=== PATIENT | male | born 1965 | race African-American/Black ===

== ENCOUNTER 2018-06-08 12:51 | Inpatient (IN) | payer OTHER ==
[2018-06-08 13:46] VITALS: BMI 23.8
--- NOTE | 2018-06-08 18:34 | HP ---
"CIWA Score - CIWA Score Nausea/Vomitin-Mild Nausea/No Vomiting Muscle Tremors: 4-Moderate,w/Arms Extend Anxiety: 1-Mildly Anxious Agitation: 1-Slight > Activity Paroxysmal Sweats: 1-Minimal Palms Moist Orientation: 0-Oriented Tacttile Disturbances: 0-None Auditory Disturbances: 0-None Visual Disturbances: 0-None Headache: 2-Mild CIWA-Ar Total Score: 10 Admission ROS BHS - HPI Chief Complaint: Here for alcohol withdrawal and problems. Allergies/Adverse Reactions: Allergies Allergy/AdvReac Type Severity Reaction Status Date / Time acetaminophen [From Tylenol] Allergy Severe Difficulty Verified 06/08/18 14:01 Breathing History of Present Illness: Alcohol use since age 14. THC use since age 9. Nicotine use began at age 14. Denies other substance use. States last drink was yesterday. Has been trying to slow down. Denies hx of seizures or blackouts. Denies DT's. Longest sobriety has been 2 years. States went to meetings during that time. Started back to drinking in 2014. Hx. Depression - on Zoloft; sleep difficulty and has been rx'd in past w/ seroquel Seen @ [facility] on 06/07/18 and was dx'd w/ a (R) Zygoma Fracture and (R ) nasal arch, as well as a (R) Corneal Abrasion. Patient's treatment will be continued in detox. Patient instructed to f/u with an supervisor wet pour upon discharge. Search Terms: Kev Quintero, 1965 Search Date: 06/08/2018 08:44:10 PM The Drug Utilization Report below displays all of the controlled substance prescriptions, if any, that your patient has filled in the last twelve months. The information displayed on this report is compiled from pharmacy submissions to the Department, and accurately reflects the information as submitted by the pharmacies. This report was requested by: Marleny Rahman | Reference #: [id number] Patient Name: Kev Quintero Date: 1965 Address: [address] [address] Sex: Male Rx Written Rx Dispensed Drug Quantity Days Supply Prescriber Name 11/18/2017 11/19/2017 chlordiazepoxide 10 mg capsule 30 10 Seema Quintero Exam Limitations: No Limitations - Ebola screening Have you traveled outside of the country in the last 21 days: No Have you had contact with anyone from an Ebola affected area: No Have you been sick,other than usual withdrawal symptoms: No Do you have a fever: No - Review of Systems Constitutional: Diaphoresis EENT: reports: Tearing ((R) eye), Other ((R) corneal abrasion being rx'd w/ eye drops. (R) nasal fracture. Denies nasal congestion or nose bleeds.) Respiratory: reports: No Symptoms reported Cardiac: reports: No Symptoms Reported GI: reports: Nausea (r/t withdrawal), Indigestion (Hx acid reflux - was taking a 20 mg pill once a day) : reports: No Symptoms Reported Musculoskeletal: reports: Other (Damaged nerves in (R) arm resulting in an inability to lift arm independently. No painful.) Integumentary: reports: No Symptoms Reported Neuro: reports: Headache (Mild), Numbness ((R) hand.), Tremors, Other (Damaged nerves in (R) arm resulting in an inability to lift arm independently.) Endocrine: reports: Excessive Sweating (r/t drinking) Hematology: reports: No Symptoms Reported Psychiatric: reports: Orientated x3, Anxious, Depressed (Denies thoughts of suicide or violent ideation) Patient History - Patient Medical History Hx Anemia: No Hx Asthma: No Hx Chronic Obstructive Pulmonary Disease (COPD): No Hx Cardiac Disorders: No Hx Hypertension: No Hx Hypercholesterolemia: No Hx Seizures: No Hx Diabetes: No Hx Gastrointestinal Disorders: Yes (acid reflux) Hx Genitourinary Disorders: No Hx Sexually Transmitted Disorders: No Hx Renal Disease (ESRD): No Hx Human Immunodeficiency Virus (HIV): No (NEGATIVE ON 09/28/12) Hx Hepatitis C: No Hx Depression: Yes (Denies S/) Hx Suicide Attempt: No Hx Bipolar Disorder: No Hx Schizophrenia: No - Patient Surgical History Past Surgical History: No Hx Neurologic Surgery: No Hx Cataract Extraction: No Hx Cardiac Surgery: No Hx Lung Surgery: No Hx Breast Surgery: No Hx Breast Biopsy: No Hx Abdominal Surgery: No Hx Appendectomy: No Hx Cholecystectomy: No Hx Genitourinary Surgery: No Hx Section: No Hx Orthopedic Surgery: No Anesthesia Reaction: No - PPD History Previous Implant?: Yes Documented Results: Negative w/o proof Implanted On Prior R Admission?: Yes PPD to be Administered?: Yes - Smoking Cessation Smoking history: Current every day smoker Have you smoked in the past 12 months: Yes Aproximately how many cigarettes per day: 4 Hx Chewing Tobacco Use: No Initiated information on smoking cessation: Yes 'Breaking Loose' booklet given: 06/08/18 - Substance & Tx. History Hx Alcohol Use: Yes Hx Substance Use: Yes Substance Use Type: Alcohol, Marijuana Hx Substance Use Treatment: Yes (REHAB, AA) - Substances Abused Alcohol-beer Route: Oral Frequency: Daily Amount used: 2- 24 oz 6 pks. Age of first use: 14 Date of Last Use: 06/07/18 Marijuana Route: Smoking Frequency: Daily Amount used: $5 Age of first use: 9 Date of Last Use: 06/07/18 Admission Physical Exam BHS - Vital Signs Vital Signs: Vital Signs - 24 hr 06/08/18 13:43 Temperature 98.2 F Pulse Rate 62 Respiratory 18 Rate Blood Pressure 125/74 - Physical General Appearance: Yes: Nourished, Appropriately Dressed, Mild Distress, Tremorous, Anxious HEENTM: Yes: EOMI, Hearing grossly Normal, MOON, Other ((R) eye sclera w/ increased erythema. No exudate. Slight swelling (R) cheek w/o tenderness. Tenderness of (L) cheek present upon palpation.) Respiratory: Yes: Chest Non-Tender, Lungs Clear, Normal Breath Sounds, No Respiratory Distress Neck: Yes: No masses,lesions,Nodules, Supple Breast: Yes: Breast Exam Deferred Cardiology: Yes: Regular Rhythm, Regular Rate, S1, S2 Abdominal: Yes: Non Tender, Soft, Increased Bowel Sounds Genitourinary: Yes: Within Normal Limits Back: Yes: Normal Inspection Musculoskeletal: Yes: Gait Steady, Other (Unable to lift (R) arm or bend elbow independently. Able to shrug (R) shoulder. Non-tender when arm flexed or cytology technologist.) Extremities: Yes: Normal Capillary Refill, Non-Tender, Tremors (of hands at rest and increases with extension of arms.) Neurological: Yes: community assistant II-XII NML intact, Fully Oriented, Alert, Normal Mood/ Affect, Other (BHG (L) > (R).) Integumentary: Yes: Normal Color, Dry, Warm Lymphatic: Yes: Within Normal Limits - Diagnostic (1) Alcohol dependence with uncomplicated withdrawal Current Visit: Yes Status: Acute (2) Cannabis dependence, uncomplicated Current Visit: Yes Status: Chronic (3) Fracture of nasal bones, subsequent encounter for fracture with routine healing Current Visit: Yes Status: Acute Qualifiers: Fracture type: closed Qualified Code(s): S02.2XXD - Fracture of nasal bones , subsequent encounter for fracture with routine healing (4) Zygomatic fracture, right side, sequela Current Visit: Yes Status: Acute (5) GERD (gastroesophageal reflux disease) Current Visit: Yes Status: Acute Qualifiers: Esophagitis presence: esophagitis presence not specified Qualified Code(s) : K21.9 - Gastro-esophageal reflux disease without esophagitis Cleared for Admission BHS - Detox or Rehab BHS Level of Care: Medically Supervised Detox Regimen/Protocol: Librium BHS Breath Alcohol Content Breath Alcohol Content: 0 Urine Drug Screen - Results Drug Screen Negative: No Urine Drug Screen Results: THC-Marijuana"
[2018-06-08] MEDS ORDERED: IBUPROFEN 400 MG TABLET (FP) PO PRN (19:17)
[2018-06-08] MEDS ORDERED: LOPERAMIDE HCL 2 MG CAPSULE PO PRN (19:17)
[2018-06-08] MEDS ORDERED: guaiFENesin/D-METHORPHAN HB 10 ML UNIT-DOSE CUPS PO PRN (19:17)
[2018-06-08] MEDS ORDERED: NICOTINE POLACRILEX 2 MG GUM BC PRN (19:17)
[2018-06-08] MEDS ORDERED: chlordiazePOXIDE HCL 25 MG CAPSULE PO PRN (19:17)
[2018-06-08] MEDS ORDERED: MAGNESIUM HYDROX 2400MG/30ML ORAL SUSPENSION 30 ML CUP PO PRN (19:17)
[2018-06-08] MEDS ORDERED: MENTHOL/PHENOL 1 EACH UD MM PRN (19:17)
[2018-06-08] MEDS ORDERED: P-EPHED 60MG/TRIPROLIDI 2.5MG TABLET PO PRN (19:17)
[2018-06-08] MEDS ORDERED: chlordiazePOXIDE HCL 25 MG CAPSULE PO ONE (19:17)
[2018-06-08] MEDS ORDERED: MAG HYDROX/AL HYDROX/SIMETH 30 ML UNIT-DOSE CUP PO PRN (19:17)
[2018-06-08] MEDS ORDERED: MAGNESIUM CITRATE 300 ML BOTTLE PO PRN (19:17)
[2018-06-08] MEDS ORDERED: PANTOPRAZOLE 20 MG TABLET (FP) PO ONE (20:38)
[2018-06-08] MEDS ORDERED: MELATONIN 5 MG TABLETS PO PRN (22:00)
[2018-06-08] MEDS: THIAMINE HCL 100 MG TABLET (FP) PO SCH (22:13)
[2018-06-08] MEDS: chlordiazePOXIDE HCL 25 MG CAPSULE PO SCH (22:13)
[2018-06-08] MEDS: MOXIFLOXACIN HCL 0.5% OPHTHALMIC 3 ML BOTTLE OD SCH (23:10)
[2018-06-08] MEDS: BACITRACIN/POLYMYXIN OPH OINT 3.5 GM TUBE OD SCH (23:10)
[2018-06-09] MEDS: chlordiazePOXIDE HCL 25 MG CAPSULE PO SCH ×4 (05:18→22:12)
[2018-06-09] MEDS: BACITRACIN/POLYMYXIN OPH OINT 3.5 GM TUBE OD SCH ×3 (06:40→22:12)
--- NOTE | 2018-06-09 09:39 | EKG ---
Test Reason : Blood Pressure : / mmHG Vent. Rate : 066 BPM Atrial Rate : 066 BPM P-R Int : 120 ms QRS Dur : 088 ms QT Int : 366 ms P-R-T Axes : 067 059 038 degrees QTc Int : 383 ms SINUS RHYTHM WITH PREMATURE ATRIAL COMPLEXES IN A PATTERN OF BIGEMINY OTHERWISE NORMAL ECG NO PREVIOUS ECGS AVAILABLE Confirmed by MASSIEL RING MD ([id number]) on 06/09/2018 9:39:16 AM Referred By: Confirmed By:MASSIEL RING MD
[2018-06-09 09:58] LABS: HEMATOCRIT 42.7 % (35.4-49); HEMOGLOBIN 14.1 GM/dL (11.7-16.9); MCH 30.6 pg (25.7-33.7); MCHC 33.1 g/dl (32.0-35.9); MEAN CELL VOLUME 92.5 fl (80-96); MEAN PLT VOLUME 8.9 fl (7.5-11.1); PLATELET COUNT 222 K/MM3 (134-434); RBC 4.62 M/mm3 (4.00-5.60); RDW 13.8 % (11.9-15.9); WHITE BLOOD COUNT 7.8 K/mm3 (4.0-10.0)
[2018-06-09] MEDS: PRENATAL VITAMINS W/ FOLIC ACID TABLET (FP) PO SCH (10:15)
[2018-06-09] MEDS: MOXIFLOXACIN HCL 0.5% OPHTHALMIC 3 ML BOTTLE OD SCH ×4 (10:16→22:12)
[2018-06-09 11:05] LABS: ALBUMIN 3.3 g/dl (3.4-5.0); ALK PHOS 99 U/L (45-117); ANION GAP 10 MMOL/L (8-16); BILIRUBIN,TOTAL 0.3 mg/dL (0.2-1); BLOOD UREA NITROGEN 8 mg/dL (7-18); CALCIUM 9.3 mg/dL (8.5-10.1); CHLORIDE 108 mmol/L (98-107); CO2 24 mmol/L (21-32); CREATININE 0.8 mg/dL (0.55-1.3); GLUCOSE,RANDOM 122 mg/dL (74-106); POTASSIUM 4.2 mmol/L (3.5-5.1); SGOT/AST 15 U/L (15-37); SGPT/ALT 23 U/L (13-61); SODIUM 142 mmol/L (136-145); TOT PROT 6.8 g/dl (6.4-8.2)
--- NOTE | 2018-06-09 11:19 | PN ---
S CIWA - CIWA Score Nausea/Vomitin-No Nausea/No Vomiting Muscle Tremors: None Anxiety: 1-Mildly Anxious Agitation: 0-Normal Activity Paroxysmal Sweats: 2 Orientation: 0-Oriented Tacttile Disturbances: 0-None Auditory Disturbances: 0-None Visual Disturbances: 0-None Headache: 0-None Present CIWA-Ar Total Score: 3 BHS Progress Note (SOAP) Subjective: Patient c/o mild anxiety and intermittent cold sweats. Objective: 06/09/18 11:18 Laboratory Tests 06/09/18 06/09/18 06/09/18 06:00 06:00 06:00 WBC 7.8 RBC 4.62 Hgb 14.1 Hct 42.7 D MCV 92.5 MCH 30.6 MCHC 33.1 RDW 13.8 Plt Count 222 MPV 8.9 Sodium 142 Potassium 4.2 Chloride 108 H Carbon Dioxide 24 Anion Gap 10 BUN 8 Creatinine 0.8 Creat Clearance w eGFR > 60 Random Glucose 122 H Calcium 9.3 Total Bilirubin 0.3 AST 15 ALT 23 Alkaline Phosphatase 99 Total Protein 6.8 Albumin 3.3 L RPR Titer Nonreactive Vital Signs Temperature 98.4 F 06/09/18 09:14 Pulse Rate 62 06/09/18 09:14 Respiratory Rate 16 06/09/18 09:14 Blood Pressure 116/80 06/09/18 09:14 O2 Sat by Pulse Oximetry (%) pe: skin cool to touch and moist alert and oriented x 3 in nad car s1s2 resp cta bl Assessment: 06/09/18 11:19 withdrawal syndrome Plan: continue detox as ordered encourage oral fluids continue to monitor clinically.
--- NOTE | 2018-06-09 13:03 | CONSULT ---
[facility] Psychiatric Consult - Data Date of interview: 06/09/18 Admission source: [facility] Identifying data: Patient is a 52 year old single male, father of one, unemployed, and is supported by disability benefits. This is patient's first admission to detox at [facility]. Pt. admittted to [facility] for alcohol and marijuana dependence. Substance Abuse History: Smoking Cessation. Smoking history: Current every day smoker. Have you smoked in the past 12 months: Yes. Aproximately how many cigarettes per day: 4. Hx Chewing Tobacco Use: No. Initiated information on smoking cessation: Yes. 'Breaking Loose' booklet given: 06/08/18. - Substance & Tx. History. Hx Alcohol Use: Yes. Hx Substance Use: Yes. Substance Use Type : Alcohol, Marijuana. Hx Substance Use Treatment: Yes (REHAB, AA). - Substances Abused. Alcohol-beer. Route: Oral. Frequency: Daily. Amount used: 2- 24 oz 6 pks. Age of first use: 14. Date of Last Use: 06/07/18. Marijuana. Route: Smoking. Frequency: Daily. Amount used: $5. Age of first use: 9. Date of Last Use: 06/07/18 Psychiatric History: Patient reports multiple psychiatric hospitalizations, most recently at [facility] 3 weeks ago for depression and anxiety. States he was receving zoloft 50mg and seroquel 100mg. Patient reports h/o noncompliance to outpatient psychiatric care. He last took psychotrophic medications last week. Patient reports h/o suicidial ideation but has never acted on his thoughts. Physical/Sexual Abuse/Trauma History: denies. Mental Status Exam - Mental Status Exam Alert and Oriented to: Time, Place, Person Cognitive Function: Good Patient Appearance: Well Groomed Mood: Euthymic Affect: Mood Congruent Patient Behavior: Talkative, Appropriate, Cooperative Speech Pattern: Appropriate Voice Loudness: Normal Thought Process: Intact, Goal Oriented Hallucinations: Denies Suicidal Ideation: Denies Homicidal Ideation: Denies Insight/Judgement: Poor Sleep: Poorly Appetite: Fair Muscle strength/Tone: Normal Gait/Station: Normal Psychiatric Findings - Problem List ([place] 1, 2,3) (1) Substance induced mood disorder Current Visit: Yes Status: Acute (2) Alcohol dependence with uncomplicated withdrawal Current Visit: Yes Status: Acute (3) Cannabis dependence, uncomplicated Current Visit: Yes Status: Chronic (4) Substance-induced sleep disorder Current Visit: Yes Status: Acute - Initial Treatment Plan Initial Treatment Plan: Psychoeducation provided. Detoxification in progress. Will order Zoloft 50mg + Seroquel 50mg qhs. Benefits and side effects discussed. Verbal consent given.
[2018-06-09] MEDS: SERTRALINE HCL 50 MG TABLET (FP) PO SCH (15:43)
[2018-06-09] MEDS: QUEtiapine FUMARATE 50 MG TABLET PO SCH (22:12)
[2018-06-09] MEDS: THIAMINE HCL 100 MG TABLET (FP) PO SCH (22:12)
[2018-06-10] MEDS: chlordiazePOXIDE HCL 25 MG CAPSULE PO SCH ×3 (05:50→17:47)
[2018-06-10] MEDS: BACITRACIN/POLYMYXIN OPH OINT 3.5 GM TUBE OD SCH ×3 (07:55→22:07)
[2018-06-10] MEDS: SERTRALINE HCL 50 MG TABLET (FP) PO SCH (10:18)
[2018-06-10] MEDS: PRENATAL VITAMINS W/ FOLIC ACID TABLET (FP) PO SCH (10:18)
[2018-06-10] MEDS: MOXIFLOXACIN HCL 0.5% OPHTHALMIC 3 ML BOTTLE OD SCH ×4 (10:19→22:07)
--- NOTE | 2018-06-10 10:45 | PN ---
S CIWA - CIWA Score Nausea/Vomitin-No Nausea/No Vomiting Muscle Tremors: None Anxiety: 0-No Anxiety, at Ease Agitation: 0-Normal Activity Paroxysmal Sweats: No Perspiration Orientation: 0-Oriented Tacttile Disturbances: 0-None Auditory Disturbances: 0-None Visual Disturbances: 0-None Headache: 1-Very Mild CIWA-Ar Total Score: 1 BHS Progress Note (SOAP) Subjective: PATIENT C/O MILD HEADACHE. Objective: 06/10/18 10:46 Vital Signs Temperature 98.9 F 06/10/18 09:11 Pulse Rate 74 06/10/18 09:11 Respiratory Rate 18 06/10/18 09:11 Blood Pressure 116/73 06/10/18 09:11 O2 Sat by Pulse Oximetry (%) Laboratory Tests 06/09/18 06/09/18 06/09/18 06:00 06:00 06:00 WBC 7.8 RBC 4.62 Hgb 14.1 Hct 42.7 D MCV 92.5 MCH 30.6 MCHC 33.1 RDW 13.8 Plt Count 222 MPV 8.9 Sodium 142 Potassium 4.2 Chloride 108 H Carbon Dioxide 24 Anion Gap 10 BUN 8 Creatinine 0.8 Creat Clearance w eGFR > 60 Random Glucose 122 H Calcium 9.3 Total Bilirubin 0.3 AST 15 ALT 23 Alkaline Phosphatase 99 Total Protein 6.8 Albumin 3.3 L RPR Titer Nonreactive PE: ALERT AND ORIENTED X 3 SKIN WARM AND DRY CAR S1S2 RESP CTA BL NEURO +PERRLA, EOMS INTACT BL Assessment: 06/10/18 10:48 WITHDRAWAL SYNDROME Plan: CONTINUE DETOX ORDERED CONTINUE ORAL FLUIDS CONTINUE TO MONITOR CLINICALLY
[2018-06-10] MEDS: THIAMINE HCL 100 MG TABLET (FP) PO SCH (22:07)
[2018-06-10] MEDS: QUEtiapine FUMARATE 50 MG TABLET PO SCH (22:08)
[2018-06-10] MEDS: chlordiazePOXIDE 5 MG CAPSULE PO SCH (22:08)
[2018-06-10 22:11] LABS: URINE APPEARANCE CLEAR; URINE BILIRUBIN NEGATIVE (<2.0 mg/dL); URINE COLOR LTYELLOW; URINE GLUCOSE (UA) NEGATIVE (NEGATIVE); URINE KETONE NEGATIVE (NEGATIVE); URINE LEUK ESTERASE NEGATIVE (NEGATIVE); URINE NITRITE NEGATIVE (NEGATIVE); URINE PROTEIN NEGATIVE (NEGATIVE); URINE UROBILINOGEN NEGATIVE mg/dL (0.2-1.0)
[2018-06-11] MEDS: chlordiazePOXIDE 5 MG CAPSULE PO SCH ×3 (05:55→17:13)
[2018-06-11] MEDS: BACITRACIN/POLYMYXIN OPH OINT 3.5 GM TUBE OD SCH ×3 (06:02→22:05)
--- NOTE | 2018-06-11 09:50 | PN ---
BHS Progress Note (SOAP) Subjective: Interrupted sleep, body aches and tremors Objective: 06/11/18 09:49 Vital Signs - 8 hr 06/11/18 06:14 Temperature 98.1 F Pulse Rate 66 Respiratory 18 Rate Blood Pressure 126/78 Laboratory Last Values WBC 7.8 K/mm3 (4.0-10.0) 06/09/18 06:00 RBC 4.62 M/mm3 (4.00-5.60) 06/09/18 06:00 Hgb 14.1 GM/dL (11.7-16.9) 06/09/18 06:00 Hct 42.7 % (35.4-49) D 06/09/18 06:00 MCV 92.5 fl (80-96) 06/09/18 06:00 MCH 30.6 pg (25.7-33.7) 06/09/18 06:00 MCHC 33.1 g/dl (32.0-35.9) 06/09/18 06:00 RDW 13.8 % (11.9-15.9) 06/09/18 06:00 Plt Count 222 K/MM3 (134-434) 06/09/18 06:00 MPV 8.9 fl (7.5-11.1) 06/09/18 06:00 Sodium 142 mmol/L (136-145) 06/09/18 06:00 Potassium 4.2 mmol/L (3.5-5.1) 06/09/18 06:00 Chloride 108 mmol/L (98-107) H 06/09/18 06:00 Carbon Dioxide 24 mmol/L (21-32) 06/09/18 06:00 Anion Gap 10 MMOL/L (8-16) 06/09/18 06:00 BUN 8 mg/dL (7-18) 06/09/18 06:00 Creatinine 0.8 mg/dL (0.55-1.3) 06/09/18 06:00 Creat Clearance w eGFR > 60 (>60) 06/09/18 06:00 Random Glucose 122 mg/dL (74-106) H 06/09/18 06:00 Calcium 9.3 mg/dL (8.5-10.1) 06/09/18 06:00 Total Bilirubin 0.3 mg/dL (0.2-1) 06/09/18 06:00 AST 15 U/L (15-37) 06/09/18 06:00 ALT 23 U/L (13-61) 06/09/18 06:00 Alkaline Phosphatase 99 U/L (45-117) 06/09/18 06:00 Total Protein 6.8 g/dl (6.4-8.2) 06/09/18 06:00 Albumin 3.3 g/dl (3.4-5.0) L 06/09/18 06:00 Urine Color Ltyellow 06/09/18 17:26 Urine Appearance Clear 06/09/18 17:26 Urine pH 6.0 (5.0-8.0) 06/09/18 17:26 Ur Specific [place] 1.020 (1.001-1.035) 06/09/18 17:26 Urine Protein Negative (NEGATIVE) 06/09/18 17:26 Urine Glucose (UA) Negative (NEGATIVE) 06/09/18 17:26 Urine Ketones Negative (NEGATIVE) 06/09/18 17:26 Urine Blood Negative (NEGATIVE) 06/09/18 17:26 Urine Nitrite Negative (NEGATIVE) 06/09/18 17:26 Urine Bilirubin Negative (<2.0 mg/dL) 06/09/18 17:26 Urine Urobilinogen Negative mg/dL (0.2-1.0) 06/09/18 17:26 Ur Leukocyte Esterase Negative (NEGATIVE) 06/09/18 17:26 RPR Titer Nonreactive (NONREACTIVE) 06/09/18 06:00 Labs noted Assessment: 06/11/18 09:49 Withdrawal sx Plan: Continue detox
[2018-06-11] MEDS: MOXIFLOXACIN HCL 0.5% OPHTHALMIC 3 ML BOTTLE OD SCH ×4 (11:28→22:05)
[2018-06-11] MEDS: SERTRALINE HCL 50 MG TABLET (FP) PO SCH (11:28)
[2018-06-11] MEDS: PRENATAL VITAMINS W/ FOLIC ACID TABLET (FP) PO SCH (11:28)
[2018-06-11] MEDS: THIAMINE HCL 100 MG TABLET (FP) PO SCH (22:04)
[2018-06-11] MEDS: QUEtiapine FUMARATE 50 MG TABLET PO SCH (22:04)
[2018-06-11] MEDS: chlordiazePOXIDE HCL 10 MG CAPSULE PO SCH (22:53)
[2018-06-12] MEDS: chlordiazePOXIDE HCL 10 MG CAPSULE PO SCH (06:29)
[2018-06-12 09:37] VITALS: BP 128/74; PULSE 70; TEMP 96.9
--- NOTE | 2018-06-12 13:04 | DS ---
[facility] Detox Discharge Summary Admission Date: 06/08/18 Discharge Date: 06/12/18 - History Present History: Alcohol Dependence, Cannabis Dependence, Cocaine Dependence Pertinent Past History: GERD - Physical Exam Results Vital Signs: Vital Signs Temperature 96.9 F L 06/12/18 09:36 Pulse Rate 70 06/12/18 09:36 Respiratory Rate 20 06/12/18 09:36 Blood Pressure 128/74 06/12/18 09:36 O2 Sat by Pulse Oximetry (%) Pertinent Admission Physical Exam Findings: Withdrawal sx Laboratory Tests 06/09/18 06/09/18 06/09/18 06:00 06:00 06:00 WBC 7.8 RBC 4.62 Hgb 14.1 Hct 42.7 D MCV 92.5 MCH 30.6 MCHC 33.1 RDW 13.8 Plt Count 222 MPV 8.9 Sodium 142 Potassium 4.2 Chloride 108 H Carbon Dioxide 24 Anion Gap 10 BUN 8 Creatinine 0.8 Creat Clearance w eGFR > 60 Random Glucose 122 H Calcium 9.3 Total Bilirubin 0.3 AST 15 ALT 23 Alkaline Phosphatase 99 Total Protein 6.8 Albumin 3.3 L Urine Color Urine Appearance Urine pH Ur Specific [place] Urine Protein Urine Glucose (UA) Urine Ketones Urine Blood Urine Nitrite Urine Bilirubin Urine Urobilinogen Ur Leukocyte Esterase RPR Titer Nonreactive 06/09/18 17:26 WBC RBC Hgb Hct MCV MCH MCHC RDW Plt Count MPV Sodium Potassium Chloride Carbon Dioxide Anion Gap BUN Creatinine Creat Clearance w eGFR Random Glucose Calcium Total Bilirubin AST ALT Alkaline Phosphatase Total Protein Albumin Urine Color Ltyellow Urine Appearance Clear Urine pH 6.0 Ur Specific [place] 1.020 Urine Protein Negative Urine Glucose (UA) Negative Urine Ketones Negative Urine Blood Negative Urine Nitrite Negative Urine Bilirubin Negative Urine Urobilinogen Negative Ur Leukocyte Esterase Negative RPR Titer Labs reviewed - Treatment Hospital Course: Detox Protocol Followed, Detoxed Safely, Responded well, Discharged Condition Good - Medication Discharge Medications: Ambulatory Orders Bacitracin/Polymyxin B Sulfate [Polycin Eye Ointment] 3.5 gm OP TID 06/08/18 Moxifloxacin HCl [Vigamox 0.5% Eye Drops -] 1 drop OP QID 06/08/18 Sertraline HCl [Zoloft -] 100 mg PO DAILY 06/08/18 Quetiapine Fumarate [Seroquel -] 50 mg PO HS 06/09/18 - Diagnosis (1) Cocaine dependence Status: Chronic (2) Alcohol dependence with uncomplicated withdrawal Status: Acute (3) GERD (gastroesophageal reflux disease) Status: Chronic Qualifiers: Esophagitis presence: esophagitis presence not specified Qualified Code(s) : K21.9 - Gastro-esophageal reflux disease without esophagitis (4) Substance induced mood disorder Status: Acute (5) Cannabis dependence, uncomplicated Status: Chronic - AMA Did Patient Leave Against Medical Advice: No (F/U with your PCP within 1-2 weeks )
== END 2018-06-12 10:42 | disposition home or self-care (01) | DRG 774 ==
LOC: YASAS 12:51 → Y3N 17:10
PROC: HZ2ZZZZ Detoxification Services for Substance Abuse Treatment (ICD-10-PCS; principal; 2018-06-08)
DX: F10.230 Alcohol dependence with withdrawal, uncomplicated (principal); F14.20 Cocaine dependence, uncomplicated; F12.20 Cannabis dependence, uncomplicated; F19.24 Other psychoactive substance dependence with psychoactive substance-induced mood disorder; F19.282 Other psychoactive substance dependence with psychoactive substance-induced sleep disorder; K21.9 Gastro-esophageal reflux disease without esophagitis; Z91.5 Personal history of self-harm
CPT/HCPCS: 36415; 80053; 81003; 85027; 86593; 93005; 93010

== ENCOUNTER 2018-08-15 09:50 | Inpatient (IN) | payer OTHER ==
[2018-08-15 10:09] VITALS: BMI 21.7
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
[2018-08-15] MEDS ORDERED: MAGNESIUM CITRATE 300 ML BOTTLE PO PRN (11:40)
[2018-08-15] MEDS ORDERED: NICOTINE POLACRILEX 2 MG GUM BUC PRN (11:40)
[2018-08-15] MEDS ORDERED: hydrOXYzine PAMOATE 50 MG CAPSULE (FP) PO PRN (11:40)
[2018-08-15] MEDS ORDERED: guaiFENesin/D-METHORPHAN HB 10 ML UNIT-DOSE CUPS PO PRN (11:40)
[2018-08-15] MEDS ORDERED: LOPERAMIDE HCL 2 MG CAPSULE PO PRN (11:40)
[2018-08-15] MEDS ORDERED: ACETAMINOPHEN 325 MG TABLET (FP) PO PRN (11:40)
[2018-08-15] MEDS ORDERED: MAG HYDROX/AL HYDROX/SIMETH 30 ML UNIT-DOSE CUP PO PRN (11:40)
[2018-08-15] MEDS ORDERED: MAGNESIUM HYDROX 2400MG/30ML ORAL SUSPENSION 30 ML CUP PO PRN (11:40)
[2018-08-15] MEDS ORDERED: MENTHOL/PHENOL 1 EACH UD MM PRN (11:40)
[2018-08-15] MEDS ORDERED: P-EPHED 60MG/TRIPROLIDI 2.5MG TABLET PO PRN (11:40)
[2018-08-15] MEDS ORDERED: IBUPROFEN 400 MG TABLET (FP) PO PRN (11:40)
[2018-08-15] MEDS: chlordiazePOXIDE HCL 25 MG CAPSULE PO PRN (13:01)
[2018-08-15] MEDS: chlordiazePOXIDE HCL 25 MG CAPSULE PO SCH ×2 (17:49→22:14)
[2018-08-15] MEDS: THIAMINE HCL 100 MG TABLET (FP) PO SCH (22:14)
[2018-08-16] MEDS: MELATONIN 5 MG TABLETS PO PRN (00:26)
[2018-08-16] MEDS: chlordiazePOXIDE HCL 25 MG CAPSULE PO PRN (00:26)
[2018-08-16] MEDS: chlordiazePOXIDE HCL 25 MG CAPSULE PO SCH ×4 (05:23→22:22)
[2018-08-16 10:05] LABS: HEMATOCRIT 45.8 % (35.4-49); MCH 30.7 pg (25.7-33.7); MCHC 32.7 g/dl (32.0-35.9); MEAN CELL VOLUME 93.9 fl (80-96); MEAN PLT VOLUME 8.7 fl (7.5-11.1); PLATELET COUNT 271 K/MM3 (134-434); RBC 4.88 M/mm3 (4.00-5.60); RDW 13.2 % (11.9-15.9); WHITE BLOOD COUNT 7.2 K/mm3 (4.0-10.0)
[2018-08-16] MEDS ORDERED: HYDROCORTISONE ACETATE 25 MG/SUPP.RECT PR ONE (10:18)
[2018-08-16] MEDS: PRENATAL VITAMINS W/ FOLIC ACID TABLET (FP) PO SCH (10:18)
--- NOTE | 2018-08-16 10:25 | PN ---
S CIWA - CIWA Score Nausea/Vomitin-No Nausea/No Vomiting Muscle Tremors: 3 Anxiety: 3 Agitation: 3 Paroxysmal Sweats: 3 Orientation: 0-Oriented Tacttile Disturbances: 0-None Auditory Disturbances: 0-None Visual Disturbances: 0-None Headache: 0-None Present CIWA-Ar Total Score: 12 BHS Progress Note (SOAP) Subjective: hemorrhoids sweats mild shakes interrupted sleep Objective: 08/16/18 10:22 Vital Signs Temperature 97.7 F 08/16/18 09:19 Pulse Rate 83 08/16/18 09:19 Respiratory Rate 18 08/16/18 09:19 Blood Pressure 146/86 08/16/18 09:19 O2 Sat by Pulse Oximetry (%) Laboratory Tests 08/16/18 06:00 WBC 7.2 RBC 4.88 Hgb 15.0 Hct 45.8 MCV 93.9 MCH 30.7 MCHC 32.7 RDW 13.2 Plt Count 271 D MPV 8.7 rest of labs pending aaox3 ambulating no acute distress Assessment: 08/16/18 10:23 withdrawal sx Plan: continue detox increase fluids anusol bid ordered
[2018-08-16 10:31] LABS: ALBUMIN 3.6 g/dl (3.4-5.0); ALK PHOS 123 U/L (45-117); ANION GAP 12 MMOL/L (8-16); BILIRUBIN,TOTAL 0.6 mg/dL (0.2-1); BLOOD UREA NITROGEN 11 mg/dL (7-18); CALCIUM 8.7 mg/dL (8.5-10.1); CHLORIDE 102 mmol/L (98-107); CO2 24 mmol/L (21-32); GLUCOSE,RANDOM 125 mg/dL (74-106); POTASSIUM 3.7 mmol/L (3.5-5.1); SGOT/AST 41 U/L (15-37); SGPT/ALT 32 U/L (13-61); SODIUM 137 mmol/L (136-145); TOT PROT 7.1 g/dl (6.4-8.2)
[2018-08-16] MEDS: HYDROCORTISONE 2.5% TOPICAL CREAM 30 GM TUBE TP SCH ×2 (11:34→22:22)
[2018-08-16] MEDS ORDERED: FLU VACCINE QUAD 60 MCG/0.5 ML (MDV 18-19) IM ONE (12:00)
--- NOTE | 2018-08-16 13:25 | CONSULT ---
[facility] Psychiatric Consult - Data Date of interview: 08/16/18 Admission source: [facility] Identifying data: Patient is a 52 year old single male, father of one, unemployed, homeless, and is supported by [facility]. This is one of multiple admissions for patient. Patient admitted to for alcohol, marijuana, and cocaine dependence. Substance Abuse History: Smoking Cessation. Smoking history: Current every day smoker. Have you smoked in the past 12 months: Yes. Aproximately how many cigarettes per day: 7. Hx Chewing Tobacco Use: No. Initiated information on smoking cessation: Yes. 'Breaking Loose' booklet given: 08/15/18. - Substance & Tx. History. Hx Alcohol Use: Yes. Hx Substance Use: Yes. Substance Use Type : Alcohol, Cocaine, Marijuana. Hx Substance Use Treatment: Yes ([facility] 06/08/18 to 06/12/18 completed). - Substances Abused. Crack. Route: Smoking. Frequency: 1-2 times per week. Amount used: $100. Age of first use: 17. Date of Last Use: 08/13/18. Alcohol-vodka. Route: Oral. Frequency: Daily. Amount used: 3-4 pts. Age of first use: 14. Date of Last Use: 08/14/18. Marijuana. Route: Smoking. Frequency: Daily. Amount used: $50. Age of first use: 9. Date of Last Use: 08/14/18 Medical History: Hep C Psychiatric History: Patient reports h/o multiple psychiatric hospitalizations, most recently at [facility] after reporting suicidal ideation ( denied being suicidal, only said it because he wanted to be admitted). Patient is also known to [facility]. Patient has been prescribed zoloft 100mg + Seroquel 100mg. Self reports diagnosis of depression and anxiety. Last electronic prescription was sent to patient's pharmacy on 05/23/18. Patient reports nonadherence to outpatient psychiatric care. At present he reports difficulty sleeping. Physical/Sexual Abuse/Trauma History: denies. Mental Status Exam - Mental Status Exam Alert and Oriented to: Time, Place, Person Cognitive Function: Good Patient Appearance: Well Groomed Mood: Euthymic Affect: Mood Congruent Patient Behavior: Cooperative Speech Pattern: Appropriate Voice Loudness: Normal Thought Process: Intact, Goal Oriented Thought Disorder: Not Present Hallucinations: Denies Suicidal Ideation: Denies Homicidal Ideation: Denies Insight/Judgement: Poor Sleep: Poorly Appetite: Fair Muscle strength/Tone: Normal Gait/Station: Normal Psychiatric Findings - Problem List ([place] 1, 2,3) (1) Alcohol dependence with uncomplicated withdrawal Status: Acute (2) Substance-induced sleep disorder Status: Acute (3) Cannabis dependence, uncomplicated Status: Chronic (4) Substance induced mood disorder Status: Acute (5) Cocaine dependence Status: Chronic - Initial Treatment Plan Initial Treatment Plan: Psychoeducation provided. Detoxification in progress. Will order Seroquel 50mg qhs. Benefits and side effects discussed. Verbal consent given.
[2018-08-16] MEDS: THIAMINE HCL 100 MG TABLET (FP) PO SCH (22:22)
[2018-08-16] MEDS: QUEtiapine FUMARATE 50 MG TABLET PO SCH (22:22)
[2018-08-17] MEDS: chlordiazePOXIDE HCL 25 MG CAPSULE PO SCH ×2 (06:10→10:37)
[2018-08-17] MEDS: PRENATAL VITAMINS W/ FOLIC ACID TABLET (FP) PO SCH (10:37)
[2018-08-17] MEDS: HYDROCORTISONE 2.5% TOPICAL CREAM 30 GM TUBE TP SCH ×2 (10:37→22:35)
--- NOTE | 2018-08-17 10:39 | PN ---
[facility] CIWA - CIWA Score Nausea/Vomitin-No Nausea/No Vomiting Muscle Tremors: 3 Anxiety: 3 Agitation: 3 Paroxysmal Sweats: 2 Orientation: 0-Oriented Tacttile Disturbances: 0-None Auditory Disturbances: 0-None Visual Disturbances: 0-None Headache: 0-None Present CIWA-Ar Total Score: 11 S Progress Note (SOAP) Subjective: feeling better little sweats Objective: 08/17/18 10:36 Vital Signs Temperature 98.6 F 08/17/18 09:52 Pulse Rate 81 08/17/18 09:52 Respiratory Rate 18 08/17/18 09:52 Blood Pressure 136/79 08/17/18 09:52 O2 Sat by Pulse Oximetry (%) Laboratory Tests 08/16/18 08/16/18 08/16/18 06:00 06:00 06:00 WBC 7.2 RBC 4.88 Hgb 15.0 Hct 45.8 MCV 93.9 MCH 30.7 MCHC 32.7 RDW 13.2 Plt Count 271 D MPV 8.7 Sodium 137 Potassium 3.7 Chloride 102 Carbon Dioxide 24 Anion Gap 12 BUN 11 Creatinine 1.0 Creat Clearance w eGFR > 60 Random Glucose 125 H Calcium 8.7 Total Bilirubin 0.6 AST 41 H ALT 32 Alkaline Phosphatase 123 H Total Protein 7.1 Albumin 3.6 RPR Titer Nonreactive aaox3 ambulating no acute distress Assessment: 08/17/18 10:37 withdrawal sx Plan: continue detox increase fluids
[2018-08-17 10:53] LABS: URINE APPEARANCE CLEAR; URINE BILIRUBIN NEGATIVE (<2.0 mg/dL); URINE COLOR STRAW; URINE GLUCOSE (UA) NEGATIVE (NEGATIVE); URINE KETONE NEGATIVE (NEGATIVE); URINE LEUK ESTERASE NEGATIVE (NEGATIVE); URINE NITRITE NEGATIVE (NEGATIVE); URINE PROTEIN NEGATIVE (NEGATIVE); URINE UROBILINOGEN NEGATIVE mg/dL (0.2-1.0)
[2018-08-17] MEDS: chlordiazePOXIDE 5 MG CAPSULE PO SCH ×2 (17:55→22:35)
[2018-08-17] MEDS: THIAMINE HCL 100 MG TABLET (FP) PO SCH (22:34)
[2018-08-17] MEDS: MELATONIN 5 MG TABLETS PO PRN (22:35)
[2018-08-17] MEDS: QUEtiapine FUMARATE 50 MG TABLET PO SCH (22:35)
[2018-08-18] MEDS: chlordiazePOXIDE 5 MG CAPSULE PO SCH ×2 (05:43→10:21)
[2018-08-18] MEDS: HYDROCORTISONE 2.5% TOPICAL CREAM 30 GM TUBE TP SCH ×2 (10:21→22:03)
[2018-08-18] MEDS: PRENATAL VITAMINS W/ FOLIC ACID TABLET (FP) PO SCH (10:21)
[2018-08-18] MEDS ORDERED: BACITRACIN 0.9 GM PACKET TP ONE (10:39)
--- NOTE | 2018-08-18 10:39 | PN ---
[facility] Progress Note (SOAP) Subjective: sweats feeling better small cut to ear lobe while shaving Objective: 08/18/18 10:38 Vital Signs Temperature 98.4 F 08/18/18 09:05 Pulse Rate 87 08/18/18 09:05 Respiratory Rate 16 08/18/18 09:05 Blood Pressure 150/81 08/18/18 09:05 O2 Sat by Pulse Oximetry (%) aaox3 ambulating no acute distress Assessment: 08/18/18 10:38 mild withdrawal sx Plan: continue detox increase fluids bacitracin prn d/c in am
[2018-08-18] MEDS: chlordiazePOXIDE HCL 10 MG CAPSULE PO SCH ×2 (17:13→22:03)
[2018-08-18] MEDS: QUEtiapine FUMARATE 50 MG TABLET PO SCH (22:03)
[2018-08-18] MEDS: THIAMINE HCL 100 MG TABLET (FP) PO SCH (22:03)
[2018-08-19] MEDS: chlordiazePOXIDE HCL 10 MG CAPSULE PO SCH (05:20)
[2018-08-19 06:29] VITALS: BP 133/92; PULSE 89; TEMP 97.9
--- NOTE | 2018-08-19 09:06 | DS ---
[facility] Detox Discharge Summary Admission Date: 08/15/18 Discharge Date: 08/19/18 - History Present History: Alcohol Dependence, Cannabis Dependence, Cocaine Dependence - Physical Exam Results Vital Signs: Vital Signs Temperature 97.9 F 08/19/18 06:00 Pulse Rate 89 08/19/18 06:00 Respiratory Rate 16 08/19/18 06:00 Blood Pressure 133/92 08/19/18 06:00 O2 Sat by Pulse Oximetry (%) - Treatment Hospital Course: Detox Protocol Followed, Detoxed Safely, Responded well, Discharged Condition Good, Rehab Referral Accepted - Medication Discharge Medications: Ambulatory Orders Sertraline HCl [Zoloft -] 100 mg PO DAILY 06/08/18 Quetiapine Fumarate [Seroquel -] 50 mg PO HS 06/09/18 - Diagnosis (1) Deformity of right shoulder joint Current Visit: No Status: Chronic (2) Friction blister of the foot Current Visit: Yes Status: Acute Qualifiers: Encounter type: initial encounter (3) Nicotine dependence Current Visit: Yes Status: Chronic Qualifiers: Nicotine product type: cigarettes Substance use status: uncomplicated Qualified Code(s): F17.210 - Nicotine dependence, cigarettes, uncomplicated (4) Weight loss Current Visit: Yes Status: Acute (5) Alcohol dependence with uncomplicated withdrawal Current Visit: Yes Status: Chronic (6) Fracture of nasal bones, subsequent encounter for fracture with routine healing Current Visit: No Status: Acute Qualifiers: Fracture type: closed Qualified Code(s): S02.2XXD - Fracture of nasal bones , subsequent encounter for fracture with routine healing (7) Substance induced mood disorder Current Visit: Yes Status: Acute (8) Substance-induced sleep disorder Current Visit: Yes Status: Acute (9) Cannabis dependence, uncomplicated Current Visit: No Status: Chronic (10) Cocaine dependence Current Visit: No Status: Chronic (11) GERD (gastroesophageal reflux disease) Current Visit: No Status: Chronic Qualifiers: Esophagitis presence: esophagitis presence not specified Qualified Code(s) : K21.9 - Gastro-esophageal reflux disease without esophagitis (12) Hemorrhoid Current Visit: Yes Status: Acute Qualifiers: Hemorrhoid type: unspecified Qualified Code(s): K64.9 - Unspecified hemorrhoids - AMA Did Patient Leave Against Medical Advice: No (referred to [facility])
== END 2018-08-19 11:10 | disposition other institution (70) | DRG 774 ==
LOC: YASAS 09:50 → Y6N 11:26
PROC: HZ2ZZZZ Detoxification Services for Substance Abuse Treatment (ICD-10-PCS; principal; 2018-08-15)
DX: F10.230 Alcohol dependence with withdrawal, uncomplicated (principal); F14.20 Cocaine dependence, uncomplicated; F12.20 Cannabis dependence, uncomplicated; F31.9 Bipolar disorder, unspecified; F19.24 Other psychoactive substance dependence with psychoactive substance-induced mood disorder; F19.282 Other psychoactive substance dependence with psychoactive substance-induced sleep disorder; F33.9 Major depressive disorder, recurrent, unspecified; F17.210 Nicotine dependence, cigarettes, uncomplicated; K64.9 Unspecified hemorrhoids; K21.9 Gastro-esophageal reflux disease without esophagitis; M21.921 Unspecified acquired deformity of right upper arm; B18.2 Chronic viral hepatitis C; R63.4 Abnormal weight loss; Z68.21 Body mass index [BMI] 21.0-21.9, adult; S90.829A Blister (nonthermal), unspecified foot, initial encounter; S02.2XXD Fracture of nasal bones, subsequent encounter for fracture with routine healing
CPT/HCPCS: 36415; 80053; 81003; 85027; 86593

== ENCOUNTER 2018-08-19 11:32 | Inpatient (IN) | payer OTHER ==
[2018-08-19] MEDS ORDERED: hydrOXYzine PAMOATE 50 MG CAPSULE (FP) PO PRN (12:20)
[2018-08-19] MEDS ORDERED: MAGNESIUM HYDROX 2400MG/30ML ORAL SUSPENSION 30 ML CUP PO PRN (12:20)
[2018-08-19] MEDS ORDERED: IBUPROFEN 400 MG TABLET (FP) PO PRN (12:20)
[2018-08-19] MEDS ORDERED: P-EPHED 60MG/TRIPROLIDI 2.5MG TABLET PO PRN (12:20)
[2018-08-19] MEDS ORDERED: guaiFENesin/D-METHORPHAN HB 10 ML UNIT-DOSE CUPS PO PRN (12:20)
[2018-08-19] MEDS ORDERED: NICOTINE POLACRILEX 2 MG GUM BUC PRN (12:20)
[2018-08-19] MEDS ORDERED: MAGNESIUM CITRATE 300 ML BOTTLE PO PRN (12:20)
[2018-08-19] MEDS ORDERED: LOPERAMIDE HCL 2 MG CAPSULE PO PRN (12:20)
[2018-08-19] MEDS ORDERED: MENTHOL/PHENOL 1 EACH UD MM PRN (12:20)
--- NOTE | 2018-08-19 12:20 | HP ---
SHAINA HERRERA Rehab Assess/Revision - Admission History Admitted to Rehab from: [address] - Vital signs Vital Signs: Vital Signs Period Temp Pulse Resp BP Sys/Gutierrez Pulse Ox Last 24 Hr 98 F 96 18 132/75 - Findings Detox History & Physical reviewed: Yes Concur with findings: Yes Inpatient Rehab Admission - Initial Determination Are CD services needed?: Yes Free of communicable disease: Yes Not in need of hospitalization: Yes - Rehab Admission Criteria Previous failed treatment: Yes Comorbidities: Yes Lacks judgement: Yes
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
[2018-08-19] MEDS ORDERED: PT OWN MED DRAWER 7, Y5N ONE ×2 (15:43→22:25)
[2018-08-19] MEDS: MAG HYDROX/AL HYDROX/SIMETH 30 ML UNIT-DOSE CUP PO PRN (19:08)
[2018-08-19] MEDS: QUEtiapine FUMARATE 50 MG TABLET PO SCH (21:21)
[2018-08-19] MEDS: THIAMINE HCL 100 MG TABLET (FP) PO SCH (21:21)
[2018-08-19] MEDS ORDERED: MELATONIN 5 MG TABLETS PO PRN (22:00)
[2018-08-19] MEDS: HYDROCORTISONE 2.5% TOPICAL CREAM 30 GM TUBE TP SCH (22:24)
[2018-08-20] MEDS: PRENATAL VITAMINS W/ FOLIC ACID TABLET (FP) PO SCH (09:54)
[2018-08-20] MEDS: HYDROCORTISONE 2.5% TOPICAL CREAM 30 GM TUBE TP SCH ×2 (09:54→21:10)
[2018-08-20] MEDS: THIAMINE HCL 100 MG TABLET (FP) PO SCH (21:09)
[2018-08-20] MEDS: QUEtiapine FUMARATE 50 MG TABLET PO SCH (21:09)
[2018-08-21] MEDS: PRENATAL VITAMINS W/ FOLIC ACID TABLET (FP) PO SCH (09:43)
[2018-08-21] MEDS: HYDROCORTISONE 2.5% TOPICAL CREAM 30 GM TUBE TP SCH ×2 (09:43→21:17)
[2018-08-21] MEDS: MAG HYDROX/AL HYDROX/SIMETH 30 ML UNIT-DOSE CUP PO PRN (09:44)
[2018-08-21] MEDS: THIAMINE HCL 100 MG TABLET (FP) PO SCH (21:17)
[2018-08-21] MEDS: QUEtiapine FUMARATE 50 MG TABLET PO SCH (21:17)
[2018-08-22] MEDS: HYDROCORTISONE 2.5% TOPICAL CREAM 30 GM TUBE TP SCH ×2 (09:59→21:30)
[2018-08-22] MEDS: PRENATAL VITAMINS W/ FOLIC ACID TABLET (FP) PO SCH (09:59)
[2018-08-22] MEDS: QUEtiapine FUMARATE 50 MG TABLET PO SCH (21:29)
[2018-08-22] MEDS: THIAMINE HCL 100 MG TABLET (FP) PO SCH (21:29)
[2018-08-23] MEDS: PRENATAL VITAMINS W/ FOLIC ACID TABLET (FP) PO SCH (09:47)
[2018-08-23] MEDS: PANTOPRAZOLE 40 MG TABLET (FP) PO SCH (09:48)
[2018-08-23] MEDS: HYDROCORTISONE 2.5% TOPICAL CREAM 30 GM TUBE TP SCH ×2 (10:53→21:38)
[2018-08-23] MEDS: THIAMINE HCL 100 MG TABLET (FP) PO SCH (21:36)
[2018-08-23] MEDS: QUEtiapine FUMARATE 50 MG TABLET PO SCH (21:37)
[2018-08-23] MEDS ORDERED: PT OWN MED DRAWER 7, Y5N ONE (21:38)
[2018-08-24] MEDS ORDERED: PT OWN MED DRAWER 7, Y5N ONE ×2 (08:24→19:19)
[2018-08-24] MEDS: PANTOPRAZOLE 40 MG TABLET (FP) PO SCH (09:49)
[2018-08-24] MEDS: PRENATAL VITAMINS W/ FOLIC ACID TABLET (FP) PO SCH (09:49)
[2018-08-24] MEDS: HYDROCORTISONE 2.5% TOPICAL CREAM 30 GM TUBE TP SCH ×2 (09:49→21:34)
[2018-08-24] MEDS: THIAMINE HCL 100 MG TABLET (FP) PO SCH (21:34)
[2018-08-24] MEDS: QUEtiapine FUMARATE 50 MG TABLET PO SCH (21:34)
[2018-08-25] MEDS: PRENATAL VITAMINS W/ FOLIC ACID TABLET (FP) PO SCH (10:10)
[2018-08-25] MEDS: PANTOPRAZOLE 40 MG TABLET (FP) PO SCH (10:10)
[2018-08-25] MEDS: HYDROCORTISONE 2.5% TOPICAL CREAM 30 GM TUBE TP SCH ×2 (10:10→21:16)
[2018-08-25] MEDS: QUEtiapine FUMARATE 50 MG TABLET PO SCH (21:16)
[2018-08-25] MEDS: THIAMINE HCL 100 MG TABLET (FP) PO SCH (21:16)
[2018-08-26] MEDS: PANTOPRAZOLE 40 MG TABLET (FP) PO SCH (10:03)
[2018-08-26] MEDS: PRENATAL VITAMINS W/ FOLIC ACID TABLET (FP) PO SCH (10:03)
[2018-08-26] MEDS: HYDROCORTISONE 2.5% TOPICAL CREAM 30 GM TUBE TP SCH ×2 (10:04→21:55)
[2018-08-26] MEDS: QUEtiapine FUMARATE 50 MG TABLET PO SCH (21:54)
[2018-08-26] MEDS: THIAMINE HCL 100 MG TABLET (FP) PO SCH (21:54)
[2018-08-27] MEDS: PANTOPRAZOLE 40 MG TABLET (FP) PO SCH (09:31)
[2018-08-27] MEDS: PRENATAL VITAMINS W/ FOLIC ACID TABLET (FP) PO SCH (09:31)
[2018-08-27] MEDS: HYDROCORTISONE 2.5% TOPICAL CREAM 30 GM TUBE TP SCH ×2 (09:32→21:51)
[2018-08-27] MEDS: QUEtiapine FUMARATE 50 MG TABLET PO SCH (21:51)
[2018-08-27] MEDS: THIAMINE HCL 100 MG TABLET (FP) PO SCH (21:51)
[2018-08-28] MEDS ORDERED: PT OWN MED DRAWER 7, Y5N ONE ×2 (08:20→20:13)
[2018-08-28] MEDS: HYDROCORTISONE 2.5% TOPICAL CREAM 30 GM TUBE TP SCH ×2 (09:41→21:28)
[2018-08-28] MEDS: PRENATAL VITAMINS W/ FOLIC ACID TABLET (FP) PO SCH (09:41)
[2018-08-28] MEDS: PANTOPRAZOLE 40 MG TABLET (FP) PO SCH (09:41)
[2018-08-28] MEDS: QUEtiapine FUMARATE 50 MG TABLET PO SCH (21:28)
[2018-08-28] MEDS: THIAMINE HCL 100 MG TABLET (FP) PO SCH (21:28)
[2018-08-29] MEDS: PRENATAL VITAMINS W/ FOLIC ACID TABLET (FP) PO SCH (10:15)
[2018-08-29] MEDS: HYDROCORTISONE 2.5% TOPICAL CREAM 30 GM TUBE TP SCH ×2 (10:15→21:58)
[2018-08-29] MEDS: PANTOPRAZOLE 40 MG TABLET (FP) PO SCH (10:15)
[2018-08-29] MEDS: QUEtiapine FUMARATE 50 MG TABLET PO SCH (21:57)
[2018-08-29] MEDS: THIAMINE HCL 100 MG TABLET (FP) PO SCH (21:57)
[2018-08-30] MEDS: HYDROCORTISONE 2.5% TOPICAL CREAM 30 GM TUBE TP SCH ×2 (09:48→21:54)
[2018-08-30] MEDS: PRENATAL VITAMINS W/ FOLIC ACID TABLET (FP) PO SCH (09:48)
[2018-08-30] MEDS: PANTOPRAZOLE 40 MG TABLET (FP) PO SCH (09:48)
[2018-08-30] MEDS: QUEtiapine FUMARATE 50 MG TABLET PO SCH (21:06)
[2018-08-30] MEDS: THIAMINE HCL 100 MG TABLET (FP) PO SCH (21:06)
[2018-08-31] MEDS: PRENATAL VITAMINS W/ FOLIC ACID TABLET (FP) PO SCH (09:42)
[2018-08-31] MEDS: HYDROCORTISONE 2.5% TOPICAL CREAM 30 GM TUBE TP SCH ×2 (09:42→21:59)
[2018-08-31] MEDS: PANTOPRAZOLE 40 MG TABLET (FP) PO SCH (09:42)
[2018-08-31] MEDS ORDERED: PT OWN MED DRAWER 7, Y5N ONE (19:13)
[2018-08-31] MEDS: QUEtiapine FUMARATE 50 MG TABLET PO SCH (21:59)
[2018-08-31] MEDS: THIAMINE HCL 100 MG TABLET (FP) PO SCH (21:59)
--- NOTE | 2018-09-01 07:44 | PN ---
Psychiatric Progress Note Vital Signs: Vital Signs Period Temp Pulse Resp BP Sys/Gutierrez Pulse Ox Last 24 Hr 97.6 F 66 16-18 113/73 Date of Session: 09/01/18 Chief Complaint:: Discharge Note HPI: Patient addressing Alcohol. Cocaine and Cannabis Dependence comorbid with Nicotine Dependence, Mood Disorder and Substance-Induced Mood Disorder ROS: Deformity of right shoulder joint Current Medications: Active Medications Generic Name Dose Route Start Last Admin Trade Name Freq PRN Reason Stop Dose Admin Al Hydroxide/Mg Hydroxide 30 ml 08/19/18 12:20 08/21/18 09:44 Mylanta Oral Suspension - PO 30 ml Q6H PRN Administration DYSPEPSIA Eucalyptus/Menthol/Phenol/Sorbitol 1 each 08/19/18 12:20 Cepastat Lozenge - MM Q4H PRN SORE THROAT Guaifenesin 10 ml 08/19/18 12:20 Robitussin Dm - PO Q6H PRN COUGH Hydrocortisone 1 applic 08/19/18 22:00 08/31/18 21:59 Anusol 2.5% Hc Cream - TP 1 applic BID BRANDON Administration Hydroxyzine Pamoate 50 mg 08/19/18 12:20 Vistaril - PO Q4H PRN AGITATION Ibuprofen 400 mg 08/19/18 12:20 Motrin - PO Q6H PRN Pain Level 4-6 Loperamide HCl 4 mg 08/19/18 12:20 Imodium - PO Q6H PRN DIARRHEA Magnesium Citrate 300 ml 08/19/18 12:20 Citroma - PO Q48H PRN CONSTIPATION Magnesium Hydroxide 30 ml 08/19/18 12:20 Milk Of Magnesia - PO DAILY PRN CONSTIPATION Melatonin 5 mg 08/19/18 22:00 Melatonin PO HS PRN INSOMNIA Nicotine Polacrilex 2 mg 08/19/18 12:20 08/31/18 09:43 Nicorette Gum - BUC 2 mg Q2H PRN Administration NICOTINE REPLACEMENT RX Pantoprazole Sodium 40 mg 08/23/18 10:00 08/31/18 09:42 Protonix - PO 40 mg DAILY BRANDON Administration Multivit/Folic Acid/Iron 1 tab 08/20/18 10:00 08/31/18 09:42 Vitamins ([facility]) - PO 1 tab DAILY BRANDON Administration Pseudoephedrine/Triprolidine 1 combo 08/19/18 12:20 Actifed - PO TID PRN NASAL CONGESTION Quetiapine Fumarate 50 mg 08/19/18 22:00 08/31/18 21:59 Seroquel - PO 50 mg HS BRANDON Administration Thiamine HCl 100 mg 08/19/18 22:00 08/31/18 21:59 Vitamin B1 - PO 100 mg HS BRANDON Administration Current Side Effect: No Lab tests ordered: Yes Lab tests reviewed: Yes Provider note:: Patient will complete this program on 09/02/18. He has met his treatment goals and will continue to address his issues in intermediate project manager residential treatment at [facility] in [place]. Told gag writer that from his participation in this program, he has learned the importance of making meetings and get a sponsor. He responded well to Seroquel 50 mg po HS. Script for 30 days supply of that medication will be electronically transmitted to [facility] at [address] [place] [address]. He is stable for discharge on 09/02/18 Total face to face time:: 35 Mental Status Exam - Mental Status Exam Alert and Oriented to: Time, Place, Person Cognitive Function: Fair Patient Appearance: Well Groomed Mood: Hopeful, Euthymic Affect: Appropriate Patient Behavior: Cooperative Speech Pattern: Clear Voice Loudness: Normal Thought Process: Intact, Goal Oriented Thought Disorder: Not Present Hallucinations: Denies Suicidal Ideation: Denies Homicidal Ideation: Denies Insight/Judgement: Fair Sleep: Fair Appetite: Good Muscle strength/Tone: Normal Gait/Station: Normal Psychiatric Treatment Plan - Problem List (1) Alcohol dependence Current Visit: Yes (2) Cocaine dependence Current Visit: No (3) Cannabis dependence Current Visit: Yes (4) Nicotine dependence Current Visit: Yes (5) Mood disorder Current Visit: Yes (6) MDD (major depressive disorder), recurrent episode Current Visit: Yes (7) Substance induced mood disorder Current Visit: Yes (8) Deformity of right shoulder joint Current Visit: No (9) Hepatitis C Current Visit: Yes Initial treatment plan: Patient will be discharged tomorrow and referred to [facility] for intermediate project manager residential treatment
[2018-09-01] MEDS: PRENATAL VITAMINS W/ FOLIC ACID TABLET (FP) PO SCH (10:02)
[2018-09-01] MEDS: HYDROCORTISONE 2.5% TOPICAL CREAM 30 GM TUBE TP SCH ×2 (10:02→21:41)
[2018-09-01] MEDS: PANTOPRAZOLE 40 MG TABLET (FP) PO SCH (10:02)
[2018-09-01] MEDS: QUEtiapine FUMARATE 50 MG TABLET PO SCH (21:40)
[2018-09-01] MEDS: THIAMINE HCL 100 MG TABLET (FP) PO SCH (21:40)
[2018-09-02 06:36] VITALS: BP 118/68; PULSE 70; TEMP 97.2
[2018-09-02] MEDS: PRENATAL VITAMINS W/ FOLIC ACID TABLET (FP) PO SCH (08:41)
[2018-09-02] MEDS: PANTOPRAZOLE 40 MG TABLET (FP) PO SCH (08:42)
--- NOTE | 2018-09-02 12:08 | PN ---
[facility] Progress Note Note: PT COMPLETED REHAB AND D/C'D TODAY. Vital Signs 09/02/18 06:36 Temperature 97.2 F L Pulse Rate 70 Respiratory 18 Rate Blood Pressure 118/68 NAD PLAN:FOLLOW UP WITH AFTERCARE RECOMMENDATION PALNNED.
== END 2018-09-02 08:48 | disposition home or self-care (01) | DRG 772 ==
LOC: YASAS 11:32 → Y3W 11:34
PROVIDERS: ADMIT Psychiatry & Neurology Psychiatry; ATTEND Psychiatry & Neurology Psychiatry
PROC: HZ42ZZZ Group Counseling for Substance Abuse Treatment, Cognitive-Behavioral (ICD-10-PCS; principal; 2018-08-19)
DX: F10.20 Alcohol dependence, uncomplicated (principal); F14.20 Cocaine dependence, uncomplicated; F12.20 Cannabis dependence, uncomplicated; F17.210 Nicotine dependence, cigarettes, uncomplicated; F39 Unspecified mood [affective] disorder; B18.2 Chronic viral hepatitis C
CPT/HCPCS: 36415; 82947

== ENCOUNTER 2019-03-07 13:05 | Inpatient (IN) | payer OTHER ==
[2019-03-07 16:52] VITALS: BMI 21.7
--- NOTE | 2019-03-07 17:49 | HP ---
CIWA Score Nausea/Vomitin-No Nausea/No Vomiting Muscle Tremors: 3 Anxiety: 2 Agitation: 1-Slight > Activity Paroxysmal Sweats: 1-Minimal Palms Moist Orientation: 0-Oriented Tacttile Disturbances: 2-Mild Itch/Numbness/Burn Auditory Disturbances: 2-Mild Harshness/Frighten Visual Disturbances: 0-None Headache: 2-Mild CIWA-Ar Total Score: 13 - Admission Criteria OASAS Guidelines: Admission for Medically Managed Detox: Requires at least one of the followin. CIWA greater than 12 2. Seizures within the past 24 hours 3. Delirium tremens within the past 24 hours 4. Hallucinations within the past 24 hours 5. Acute intervention needed for co occurring medical disorder 6. Acute intervention needed for co occurring psychiatric disorder 7. Severe withdrawal that cannot be handled at a lower level of care (continued vomiting, continued diarrhea, abnormal vital signs) requiring intravenous medication and/or fluids 8. Admission ROS S - [facility] Chief Complaint: Withdrawal symptoms Allergies/Adverse Reactions: Allergies Allergy/AdvReac Type Severity Reaction Status Date / Time acetaminophen [From Tylenol] Allergy Severe Difficulty Verified 03/07/19 16:35 Breathing History of Present Illness: 53 y.o. man with an extensive history of alcohol and crack-cocaine dependence is here for detox admission. He last completed detox and rehab here in 2017. Longest period of sobriety has been 2 years. Exam Limitations: No Limitations - Ebola screening Have you traveled outside of the country in the last 21 days: No Have you had contact with anyone from an Ebola affected area: No Do you have a fever: No - Review of Systems Constitutional: Chills, Unintentional Wgt. Loss EENT: reports: Blurred Vision, Double Vision, Tearing Respiratory: reports: Cough Cardiac: reports: No Symptoms Reported GI: reports: Indigestion : reports: No Symptoms Reported Musculoskeletal: reports: No Symptoms Reported Integumentary: reports: No Symptoms Reported Neuro: reports: Seizure (ETOH INDUCED IN 09/2018), Tremors, Weakness (RIGHT ARM) Endocrine: reports: No Symptoms Reported Hematology: reports: No Symptoms Reported Psychiatric: reports: Anxious, Depressed, other (BIPOLAR) Other Systems: Reviewed and Negative Patient History - Patient Medical History Hx Anemia: No Hx Asthma: No Hx Chronic Obstructive Pulmonary Disease (COPD): No Hx Cancer: No Hx Cardiac Disorders: No Hx Congestive Heart Failure: No Hx Hypertension: No Hx Hypercholesterolemia: No Hx Pacemaker: No HX Cerebrovascular Accident: No Hx Seizures: No Hx Dementia: No Hx Diabetes: No Hx Gastrointestinal Disorders: Yes (GERD) Hx Liver Disease: No Hx Genitourinary Disorders: No Hx Sexually Transmitted Disorders: No Hx Renal Disease (ESRD): No Hx Thyroid Disease: No Hx Human Immunodeficiency Virus (HIV): No (negative 05/31) Hx Hepatitis C: Yes (not treated) Hx Depression: Yes Hx Suicide Attempt: No Hx Bipolar Disorder: Yes Hx Schizophrenia: No - Patient Surgical History Past Surgical History: No Hx Neurologic Surgery: No Hx Cataract Extraction: No Hx Cardiac Surgery: No Hx Lung Surgery: No Hx Breast Surgery: No Hx Breast Biopsy: No Hx Abdominal Surgery: No Hx Appendectomy: No Hx Cholecystectomy: No Hx Genitourinary Surgery: No Hx Section: No Hx Orthopedic Surgery: No Anesthesia Reaction: No - PPD History Previous Implant?: Yes Documented Results: Negative w/proof Implanted On Prior R Admission?: Yes Date: 06/10/18 Results: 0 mm PPD to be Administered?: No - Reproductive History Patient is a Female of Child Bearing Age (11 -55 yrs old): No - Smoking Cessation Smoking history: Current every day smoker Have you smoked in the past 12 months: Yes Aproximately how many cigarettes per day: 5 Hx Chewing Tobacco Use: No Initiated information on smoking cessation: Yes 'Breaking Loose' booklet given: 03/07/19 - Substance & Tx. History Hx Alcohol Use: Yes Hx Substance Use: Yes Substance Use Type: Alcohol, Cocaine Hx Substance Use Treatment: Yes (DETOX AND REHAB: 09/2018) - Substances abused Marijuana/Hashish Substance route: Smoking Frequency: 1-2 times per week Amount used: a dime bag Age of first use: 9 Date of last use: 03/06/19 Alcohol Substance route: Oral Frequency: 3-6 times per week Amount used: 1 pint Age of first use: 15 Date of last use: 03/06/19 Crack Substance route: Smoking Frequency: 1-2 times per week Amount used: 20 dollars Age of first use: 18 Date of last use: 03/06/19 Family Disease History - Family Disease History Family Disease History: Diabetes: Brother (ETOH DEPENDENCE), Other: Brother Admission Physical Exam [facility] - Vital Signs Vital Signs: Vital Signs - 24 hr 03/07/19 03/07/19 16:45 17:24 Temperature 98.0 F 98.0 F Pulse Rate 63 63 Respiratory 16 16 Rate Blood Pressure 121/76 121/76 - Physical General Appearance: Yes: Tremorous, Irritable, Anxious HEENTM: Yes: Hearing grossly Normal, Normocephalic, Normal Voice Respiratory: Yes: Chest Non-Tender, Lungs Clear, Normal Breath Sounds, No Respiratory Distress Neck: Yes: Within Normal Limits, No masses,lesions,Nodules Breast: Yes: Breast Exam Deferred Cardiology: Yes: Regular Rhythm, Regular Rate Abdominal: Yes: Normal Bowel Sounds, Non Tender, Flat, Soft Genitourinary: Yes: Other (No complaints reported) Back: Yes: Normal Inspection Musculoskeletal: Yes: Muscle weakness (Limite ROM to right upper extremity) Extremities: Yes: Normal Capillary Refill, Normal Inspection, Non-Tender Neurological: Yes: Alert, Normal Mood/Affect, Normal Response Integumentary: Yes: Normal Color, Dry, Warm Lymphatic: Yes: Within Normal Limits - Diagnostic (1) Paresis of single lower extremity Current Visit: Yes Status: Chronic (2) 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 Current Visit: Yes Status: Chronic (3) Cocaine dependence Current Visit: Yes Status: Chronic (4) Weight loss Current Visit: Yes Status: Chronic (5) Alcohol dependence with uncomplicated withdrawal Current Visit: Yes Status: Chronic (6) GERD (gastroesophageal reflux disease) Current Visit: Yes Status: Chronic Qualifiers: Esophagitis presence: esophagitis presence not specified Qualified Code(s) : K21.9 - Gastro-esophageal reflux disease without esophagitis (7) Hepatitis C Current Visit: Yes Status: Chronic (8) Nicotine dependence Current Visit: Yes Status: Chronic Qualifiers: Nicotine product type: cigarettes Substance use status: uncomplicated Qualified Code(s): F17.210 - Nicotine dependence, cigarettes, uncomplicated Cleared for Admission BHS - Detox or Rehab S Level of Care: Medically Managed Detox Regimen/Protocol: Librium Claeared for Rehab Admission: No Breathalyzer - Breathalyzer Breathalyzer: 0 Urine Drug Screen - Test Device Lot number: [id number] Expiration date: 11/10/20 - Control Is test valid?: Yes - Results Drug screen NEGATIVE: No Urine drug screen results: THC-Marijuana, ROYAL-Cocaine Inpatient Rehab Admission - Rehab Decision to Admit Inpatient rehab admission?: No
[2019-03-07] MEDS ORDERED: IBUPROFEN 400 MG TABLET (FP) PO PRN (17:55)
[2019-03-07] MEDS ORDERED: MAGNESIUM CITRATE 300 ML BOTTLE PO PRN (17:55)
[2019-03-07] MEDS ORDERED: MAG HYDROX/AL HYDROX/SIMETH 30 ML UNIT-DOSE CUP PO PRN (17:55)
[2019-03-07] MEDS ORDERED: MAGNESIUM HYDROX 2400MG/30ML ORAL SUSPENSION 30 ML CUP PO PRN (17:55)
[2019-03-07] MEDS ORDERED: MELATONIN 5 MG TABLETS PO PRN (17:55)
[2019-03-07] MEDS ORDERED: BISMUTH SUBSALICYLATE 524 MG/30 ML UD PO PRN (17:55)
[2019-03-07] MEDS ORDERED: chlordiazePOXIDE HCL 10 MG CAPSULE PO PRN (17:55)
[2019-03-07] MEDS ORDERED: hydrOXYzine PAMOATE 25 MG CAPSULE (FP) PO PRN (17:55)
[2019-03-07] MEDS ORDERED: NICOTINE POLACRILEX 2 MG GUM BUC PRN (17:55)
[2019-03-07] MEDS ORDERED: MENTHOL/PHENOL 1 EACH UD MM PRN (17:55)
[2019-03-07] MEDS ORDERED: METHOCARBAMOL 500 MG TABLET PO PRN (17:55)
[2019-03-07] MEDS: THIAMINE HCL 100 MG TABLET (FP) PO SCH (22:29)
[2019-03-07] MEDS: chlordiazePOXIDE HCL 25 MG CAPSULE PO SCH (22:29)
[2019-03-07] MEDS: QUEtiapine FUMARATE 50 MG TABLET PO PRN (22:29)
[2019-03-08] MEDS: chlordiazePOXIDE HCL 25 MG CAPSULE PO SCH ×2 (05:31→13:40)
--- NOTE | 2019-03-08 08:05 | EKG ---
Test Reason : Blood Pressure : / mmHG Vent. Rate : 057 BPM Atrial Rate : 057 BPM P-R Int : 122 ms QRS Dur : 090 ms QT Int : 414 ms P-R-T Axes : 055 047 019 degrees QTc Int : 402 ms SINUS BRADYCARDIA WITH MARKED SINUS ARRHYTHMIA OTHERWISE NORMAL ECG WHEN COMPARED WITH ECG OF 08-JUN-2018 20:24, PREMATURE ATRIAL COMPLEXES ARE NO LONGER PRESENT NONSPECIFIC T WAVE ABNORMALITY, WORSE IN INFERIOR LEADS Confirmed by BRUNA HERRERA, JAIRON ([id number]) on 03/08/2019 8:04:41 AM Referred By: LISA GRAHAM, Confirmed By:JAIRON MCFARLAND MD
[2019-03-08] MEDS: RANITIDINE HCL 150 MG TABLET (FP) PO SCH (09:14)
[2019-03-08] MEDS: PRENATAL VITAMINS W/ FOLIC ACID TABLET (FP) PO SCH (09:14)
[2019-03-08 10:00] LABS: HEMATOCRIT 44.7 % (35.4-49); HEMOGLOBIN 14.5 GM/dL (11.7-16.9); MCH 30.5 pg (25.7-33.7); MCHC 32.6 g/dl (32.0-35.9); MEAN CELL VOLUME 93.7 fl (80-96); MEAN PLT VOLUME 8.3 fl (7.5-11.1); PLATELET COUNT 263 K/MM3 (134-434); RBC 4.76 M/mm3 (4.00-5.60); RDW 13.9 % (11.9-15.9); WHITE BLOOD COUNT 5.1 K/mm3 (4.0-10.0)
[2019-03-08 10:01] LABS: ALBUMIN 2.9 g/dl (3.4-5.0); BILIRUBIN,TOTAL 0.4 mg/dL (0.2-1); BLOOD UREA NITROGEN 6.3 mg/dL (7-18); CALCIUM 8.2 mg/dL (8.5-10.1); POTASSIUM 3.5 mmol/L (3.5-5.1)
--- NOTE | 2019-03-08 13:05 | CONSULT ---
[facility] Psychiatric Consult - Data Date of interview: 03/08/19 Admission source: [facility] Identifying data: Approached at bedside for psychiatric interviuew. Patient declines.
--- NOTE | 2019-03-08 14:44 | PN ---
[facility] CIWA - CIWA Score Nausea/Vomitin-No Nausea/No Vomiting Muscle Tremors: None Anxiety: 3 Agitation: 0-Normal Activity Paroxysmal Sweats: 2 Orientation: 1-Uncertain about Date Tacttile Disturbances: 2-Mild Itch/Numbness/Burn Auditory Disturbances: 0-None Visual Disturbances: 3-Moderate Sensitivity Headache: 0-None Present CIWA-Ar Total Score: 11 S Progress Note (SOAP) Subjective: Fatigue, Body Aches, Anxious. Objective: PATIENT A & O X 3. IN NO ACUTE DISTRESS. 03/08/19 14:40 Vital Signs Temperature 96 F L 03/08/19 13:03 Pulse Rate 55 L 03/08/19 13:03 Respiratory Rate 20 03/08/19 13:03 Blood Pressure 115/67 03/08/19 13:03 O2 Sat by Pulse Oximetry (%) Laboratory Tests 03/08/19 03/08/19 03/08/19 07:00 07:00 07:00 WBC 5.1 RBC 4.76 Hgb 14.5 Hct 44.7 MCV 93.7 MCH 30.5 MCHC 32.6 RDW 13.9 Plt Count 263 MPV 8.3 Sodium 145 Potassium 3.5 Chloride 108 H Carbon Dioxide 29 Anion Gap 8 BUN 6.3 L Creatinine 1.0 Est GFR (CKD-EPI)AfAm 99.15 Est GFR (CKD-EPI)NonAf 85.55 Random Glucose 90 Calcium 8.2 L Total Bilirubin 0.4 AST 14 L ALT 22 Alkaline Phosphatase 100 Total Protein 6.0 L Albumin 2.9 L RPR Titer Nonreactive LABS NOTED. Assessment: 03/08/19 14:41 WITHDRAWAL SYMPTOMS. Plan: CONTINUE DETOX. PATIENT REPORTS HISTORY OF RECENT INJURY TO CHEST PRIOR TO ADMISSION TO DETOX, FOR WHICH HE WAS [facility]. PATIENT WAS PRESCRIBED INCENTIVE SPIROMETER, WHICH HE BROUGHT WITH HIM AT TIME OF ADMISSION ASSESSMENT. HOWEVER, PATIENT DID NOT BREING THE INCENTIVE SPIROMETER UP TO DETOX UNIT WITH HIM. INCENTIVE SPIROMETER ORDERED FOR PATIENT. PATIENT REPORTS THAT HE ALREADY HAS BEEN EDUCATED ABOUT HOW TO USE.
[2019-03-08] MEDS: chlordiazePOXIDE 5 MG CAPSULE PO SCH (21:14)
[2019-03-08] MEDS: THIAMINE HCL 100 MG TABLET (FP) PO SCH (21:14)
[2019-03-08] MEDS: QUEtiapine FUMARATE 50 MG TABLET PO PRN (21:14)
[2019-03-09] MEDS: chlordiazePOXIDE 5 MG CAPSULE PO SCH ×2 (05:35→14:19)
[2019-03-09] MEDS: RANITIDINE HCL 150 MG TABLET (FP) PO SCH (10:40)
[2019-03-09] MEDS: PRENATAL VITAMINS W/ FOLIC ACID TABLET (FP) PO SCH (10:46)
--- NOTE | 2019-03-09 15:13 | PN ---
S CIWA - CIWA Score Nausea/Vomitin-No Nausea/No Vomiting Muscle Tremors: None Anxiety: 2 Agitation: 0-Normal Activity Paroxysmal Sweats: No Perspiration Orientation: 0-Oriented Tacttile Disturbances: 1-Very Mild Itch/Numbness Auditory Disturbances: 0-None Visual Disturbances: 2-Mild Sensitivity Headache: 0-None Present CIWA-Ar Total Score: 5 BHS Progress Note (SOAP) Subjective: Fatigue, Body Aches. Patient reports That Current withdrawal Detox Symptoms in General Are Gradually Subsiding in Severity. Objective: PATIENT A & O X 3. IN NO ACUTE DISTRESS. PATIENT REPORTS THAT HE IS USING HIS INCENTIVE SPIROMETER DIRECTED WITHOUT DIFFICULTY. 03/09/19 15:11 Vital Signs Temperature 98.2 F 03/09/19 13:09 Pulse Rate 69 03/09/19 13:09 Respiratory Rate 18 03/09/19 13:09 Blood Pressure 134/74 03/09/19 13:09 O2 Sat by Pulse Oximetry (%) Laboratory Tests 03/08/19 03/08/19 03/08/19 07:00 07:00 07:00 WBC 5.1 RBC 4.76 Hgb 14.5 Hct 44.7 MCV 93.7 MCH 30.5 MCHC 32.6 RDW 13.9 Plt Count 263 MPV 8.3 Sodium 145 Potassium 3.5 Chloride 108 H Carbon Dioxide 29 Anion Gap 8 BUN 6.3 L Creatinine 1.0 Est GFR (CKD-EPI)AfAm 99.15 Est GFR (CKD-EPI)NonAf 85.55 Random Glucose 90 Calcium 8.2 L Total Bilirubin 0.4 AST 14 L ALT 22 Alkaline Phosphatase 100 Total Protein 6.0 L Albumin 2.9 L RPR Titer Nonreactive LABS NOTED. 03/09/19 15:12 Assessment: 03/09/19 15:12 WITHDRAWAL SYMPTOMS. Plan: CONTINUE DETOX. PATIENT SCHEDULED FOR D/C FROM DETOX UNIT TOMORROW.
[2019-03-09] MEDS ORDERED: QUEtiapine FUMARATE 25 MG TABLET (FP) ONE (20:56)
[2019-03-09] MEDS ORDERED: chlordiazePOXIDE HCL 10 MG CAPSULE PO PRN (21:00)
[2019-03-09] MEDS: THIAMINE HCL 100 MG TABLET (FP) PO SCH (21:44)
[2019-03-09] MEDS: chlordiazePOXIDE HCL 10 MG CAPSULE PO SCH (21:45)
[2019-03-09] MEDS: QUEtiapine FUMARATE 50 MG TABLET PO PRN (21:45)
[2019-03-10] MEDS: chlordiazePOXIDE HCL 10 MG CAPSULE PO SCH (05:16)
--- NOTE | 2019-03-10 08:47 | DS ---
[facility] Detox Discharge Summary Admission Date: 03/07/19 Discharge Date: 03/10/19 - History Present History: Alcohol Dependence Additional Comments: follow up with rehab as arrangement Pertinent Past History: gerd hepatitis c nicotine dependence weight loss monoparesis of right upper extremity post trauma - Physical Exam Results Vital Signs: Vital Signs Temperature 97.4 F L 03/10/19 06:54 Pulse Rate 57 L 03/10/19 06:54 Respiratory Rate 18 03/10/19 06:54 Blood Pressure 117/65 03/10/19 06:54 O2 Sat by Pulse Oximetry (%) Pertinent Admission Physical Exam Findings: Vital Signs Temperature 97.4 F L 03/10/19 06:54 Pulse Rate 57 L 03/10/19 06:54 Respiratory Rate 18 03/10/19 06:54 Blood Pressure 117/65 03/10/19 06:54 O2 Sat by Pulse Oximetry (%) withdrawal signs and symptom - Treatment Hospital Course: Detox Protocol Followed, Detoxed Safely, Responded well, Discharged Condition Good, Rehab Referral Accepted Patient has Accepted [facility] Ref[facility] - Medication Discharge Medications: Ambulatory Orders Sertraline HCl [Zoloft -] 100 mg PO DAILY 06/08/18 Quetiapine Fumarate [Seroquel -] 50 mg PO HS #30 tablet 09/01/18 Ibuprofen 600 mg PO PRN PRN 03/07/19 Oxycodone HCl/Acetaminophen [Percocet 10-325 mg Tablet] 1 tablet PO BID PRN - AMA Did Patient Leave Against Medical Advice: No
--- NOTE | 2019-03-10 08:47 | PN ---
[facility] CIWA - CIWA Score Nausea/Vomitin-No Nausea/No Vomiting Muscle Tremors: 1-None Visible, but Barry Anxiety: 1-Mildly Anxious Agitation: 0-Normal Activity Paroxysmal Sweats: No Perspiration Orientation: 0-Oriented Tacttile Disturbances: 0-None Auditory Disturbances: 0-None Visual Disturbances: 0-None Headache: 0-None Present CIWA-Ar Total Score: 2 [facility]HS Progress Note (SOAP) Subjective: alert,no complaint Objective: 03/10/19 08:44 Vital Signs Temperature 97.4 F L 03/10/19 06:54 Pulse Rate 57 L 03/10/19 06:54 Respiratory Rate 18 03/10/19 06:54 Blood Pressure 117/65 03/10/19 06:54 O2 Sat by Pulse Oximetry (%) Assessment: 03/10/19 08:44 detox completed,no withdrawal symptom Plan: discharge today,follow up with after care program as arrangement
[2019-03-10 09:46] VITALS: BP 124/59; PULSE 68; TEMP 96.4
[2019-03-10] MEDS: PRENATAL VITAMINS W/ FOLIC ACID TABLET (FP) PO SCH (10:30)
[2019-03-10] MEDS: RANITIDINE HCL 150 MG TABLET (FP) PO SCH (10:30)
== END 2019-03-10 11:15 | disposition other institution (70) | DRG 774 ==
LOC: YASAS 13:05 → Y3N 18:34
PROVIDERS: ADMIT Surgery; ATTEND Surgery
PROC: HZ2ZZZZ Detoxification Services for Substance Abuse Treatment (ICD-10-PCS; principal; 2019-03-07)
DX: F10.230 Alcohol dependence with withdrawal, uncomplicated (principal); F14.20 Cocaine dependence, uncomplicated; F31.9 Bipolar disorder, unspecified; K21.9 Gastro-esophageal reflux disease without esophagitis; B18.2 Chronic viral hepatitis C; G83.21 Monoplegia of upper limb affecting right dominant side; R63.4 Abnormal weight loss; Z68.21 Body mass index [BMI] 21.0-21.9, adult
CPT/HCPCS: 36415; 80053; 85027; 86593; 93005; 93010

== ENCOUNTER 2019-03-10 11:27 | Inpatient (IN) | payer OTHER ==
--- NOTE | 2019-03-10 11:55 | HP ---
[facility] Rehab Assess/Revision - Admission History Admitted to Rehab from: [facility] Date of Admission to Rehab: 03/11/19 - Findings Detox History & Physical reviewed: Yes Concur with findings: Yes Comments/Additional Findings: for rehab as protocol Inpatient Rehab Admission - Rehab Decision to Admit Inpatient rehab admission?: Yes - Initial Determination Are CD services needed?: Yes Free of communicable disease: Yes Not in need of hospitalization: Yes - Rehab Admission Criteria Previous failed treatment: Yes Poor recovery environment: Yes Comorbidities: Yes Lacks judgement: No Patient is meeting Inpatient Rehab admission criteria:: Yes
[2019-03-10] MEDS ORDERED: IBUPROFEN 400 MG TABLET (FP) PO PRN (11:56)
[2019-03-10] MEDS ORDERED: MAGNESIUM HYDROX 2400MG/30ML ORAL SUSPENSION 30 ML CUP PO PRN (11:56)
[2019-03-10] MEDS ORDERED: MENTHOL/PHENOL 1 EACH UD MM PRN (11:56)
[2019-03-10] MEDS ORDERED: P-EPHED 60MG/TRIPROLIDI 2.5MG TABLET PO PRN (11:56)
[2019-03-10] MEDS ORDERED: ACETAMINOPHEN 325 MG TABLET (FP) PO PRN (11:56)
[2019-03-10] MEDS ORDERED: guaiFENesin 200 MG/10 ML 10 ML UNIT-DOSE CUPS PO PRN (11:56)
[2019-03-10] MEDS ORDERED: LOPERAMIDE HCL 2 MG CAPSULE PO PRN (11:56)
[2019-03-10] MEDS ORDERED: MAGNESIUM CITRATE 300 ML BOTTLE PO PRN (11:56)
[2019-03-10] MEDS ORDERED: MAG HYDROX/AL HYDROX/SIMETH 30 ML UNIT-DOSE CUP PO PRN (11:56)
[2019-03-10] MEDS: hydrOXYzine PAMOATE 50 MG CAPSULE (FP) PO PRN ×2 (15:44→21:22)
[2019-03-10] MEDS ORDERED: MELATONIN 5 MG TABLETS PO PRN (22:00)
[2019-03-10] MEDS ORDERED: THIAMINE HCL 100 MG TABLET (FP) PO SCH (22:00)
[2019-03-11 07:07] VITALS: BP 125/77; PULSE 59; TEMP 97.4
[2019-03-11] MEDS ORDERED: RANITIDINE HCL 150 MG TABLET (FP) PO SCH (10:00)
[2019-03-11] MEDS ORDERED: PRENATAL VITAMINS W/ FOLIC ACID TABLET (FP) PO SCH (10:00)
--- NOTE | 2019-03-11 10:39 | PN ---
[facility] Progress Note Note: Discharge Summary Patient Name: JOSELYN RIVERS Date of : 65 Patient Status: Inpatient Attending Provider: Seema Biggs Date: 03/11/19 10:38 Initialization Date: 03/11/19 10:38 [facility] Detox Discharge Summary Admission Date: 03/10/19 Discharge Date: 03/11/19 - History Present History: Alcohol Dependence, Cocaine Dependence Pertinent Past History: GERD, Hep C, Bipolar, Depression - Physical Exam Results Vital Signs: Vital Signs Temperature 97.4 F L 03/11/19 07:07 Pulse Rate 59 L 03/11/19 07:07 Respiratory Rate 20 03/11/19 07:07 Blood Pressure 125/77 03/11/19 07:07 O2 Sat by Pulse Oximetry (%) - Medication Discharge Medications: Ambulatory Orders Sertraline HCl [Zoloft -] 100 mg PO DAILY 06/08/18 Quetiapine Fumarate [Seroquel -] 50 mg PO HS #30 tablet 09/01/18 Ibuprofen 600 mg PO PRN PRN 03/07/19 Oxycodone HCl/Acetaminophen [Percocet 10-325 mg Tablet] 1 tablet PO BID PRN Ranitidine [Zantac -] 150 mg PO DAILY tablet 03/10/19 - Diagnosis (1) Alcohol dependence Status: Acute (2) Cannabis dependence Status: Acute (3) Substance-induced sleep disorder Status: Acute (4) Alcohol dependence with uncomplicated withdrawal Status: Chronic (5) GERD (gastroesophageal reflux disease) Status: Chronic Qualifiers: (6) Hepatitis C Status: Chronic (7) Nicotine dependence Status: Chronic - AMA Did Patient Leave Against Medical Advice: Yes
== END 2019-03-11 10:20 | disposition left against medical advice (07) | DRG 770 ==
LOC: YASAS 11:27 → Y3W 11:44
PROVIDERS: ADMIT Neuromusculoskeletal Medicine & OMM; ATTEND Neuromusculoskeletal Medicine & OMM
PROC: HZ42ZZZ Group Counseling for Substance Abuse Treatment, Cognitive-Behavioral (ICD-10-PCS; principal; 2019-03-10)
DX: F10.20 Alcohol dependence, uncomplicated (principal); F12.20 Cannabis dependence, uncomplicated; F17.210 Nicotine dependence, cigarettes, uncomplicated; F19.282 Other psychoactive substance dependence with psychoactive substance-induced sleep disorder; K21.9 Gastro-esophageal reflux disease without esophagitis; B18.2 Chronic viral hepatitis C

== ENCOUNTER 2019-06-22 13:00 | Inpatient (IN) | payer OTHER ==
[2019-06-22 17:14] VITALS: BMI 20.7
--- NOTE | 2019-06-22 17:48 | HP ---
CIWA Score Nausea/Vomitin-No Nausea/No Vomiting Muscle Tremors: 2 Anxiety: 1-Mildly Anxious Agitation: 0-Normal Activity Paroxysmal Sweats: 1-Minimal Palms Moist Orientation: 0-Oriented Tacttile Disturbances: 0-None Auditory Disturbances: 1-Very Mild Visual Disturbances: 0-None Headache: 1-Very Mild CIWA-Ar Total Score: 6 - Admission Criteria OASAS Guidelines: Admission for Medically Managed Detox: Requires at least one of the followin. CIWA greater than 12 2. Seizures within the past 24 hours 3. Delirium tremens within the past 24 hours 4. Hallucinations within the past 24 hours 5. Acute intervention needed for co occurring medical disorder 6. Acute intervention needed for co occurring psychiatric disorder 7. Severe withdrawal that cannot be handled at a lower level of care (continued vomiting, continued diarrhea, abnormal vital signs) requiring intravenous medication and/or fluids 8. Admitting History and Physical - Smoking History Smoking history: Current every day smoker Have you smoked in the past 12 months: Yes Aproximately how many cigarettes per day: 5 - Alcohol/Substance Use Hx Alcohol Use: Yes Admission [facility] Chief Complaint: Kev Quintero is a 53 year old male presenting for alcohol, cocaine, marijuana abuse. Allergies/Adverse Reactions: Allergies Allergy/AdvReac Type Severity Reaction Status Date / Time acetaminophen [From Tylenol] Allergy Severe Difficulty Verified 06/22/19 17:09 Breathing History of Present Illness: Kev Quintero is a 53 year old male presenting for alcohol, cocaine, marijuana abuse. Alcohol: 1 pint daily. Daily user. 3-4 beers/week. Last use was this morning. Has been drinking since age 14. Endorses seizure, most recent in September 2018. Has had blackouts. Has had falls with head hits. Longest period of sobriety: 2 years. Stopped drinking when he was in rehab. Withdrawal symptoms: headaches, vomiting, tremors. Referred here by [facility]. Cocaine: 20$/day. 3-4 days/week Marijuana: 1/8 oz per week. Has been to detox and rehab in the past at this facility. Most recently in February. Plans are to go to rehab. Medical History: GERD, Hep C (active), seizures, nerve damage in R arm Psychiatric History: depression Surgical History: denies Smokin-8 cigarettes per day Social: Currently in [place] residence, public housing residence with physicians on site. No legal trouble. Utox: THC, ROYAL, BZO LORRIE: 0.000 Will be admitted for inpatient rehab. Inpatient rehab due to inability to remain sober despite completing detox. Exam Limitations: No Limitations - Ebola screening Have you traveled outside of the country in the last 21 days: No Have you had contact with anyone from an Ebola affected area: No Do you have a fever: No - Review of Systems Constitutional: Chills, Changes in sleep (poor sleep) EENT: reports: No Symptoms Reported Respiratory: reports: No Symptoms reported Cardiac: reports: No Symptoms Reported GI: reports: Diarrhea, Indigestion : reports: No Symptoms Reported Musculoskeletal: reports: Muscle Weakness (R arm weakness) Integumentary: reports: Dryness Neuro: reports: Weakness (on R arm) Endocrine: reports: No Symptoms Reported Hematology: reports: No Symptoms Reported Psychiatric: reports: Anxious Patient History - Patient Medical History Hx Anemia: No Hx Asthma: No Hx Chronic Obstructive Pulmonary Disease (COPD): No Hx Cancer: No Hx Cardiac Disorders: No Hx Congestive Heart Failure: No Hx Hypertension: No Hx Hypercholesterolemia: No Hx Pacemaker: No HX Cerebrovascular Accident: No Hx Seizures: Yes Hx Dementia: No Hx Diabetes: No Hx Gastrointestinal Disorders: Yes (GERD) Hx Liver Disease: No Hx Genitourinary Disorders: No Hx Sexually Transmitted Disorders: No Hx Renal Disease (ESRD): No Hx Thyroid Disease: No Hx Human Immunodeficiency Virus (HIV): No (negative 05/31) Hx Hepatitis C: Yes (not treated) Hx Depression: Yes Hx Suicide Attempt: No Hx Bipolar Disorder: Yes Hx Schizophrenia: No - Patient Surgical History Past Surgical History: No Hx Neurologic Surgery: No Hx Cataract Extraction: No Hx Cardiac Surgery: No Hx Lung Surgery: No Hx Breast Surgery: No Hx Breast Biopsy: No Hx Abdominal Surgery: No Hx Appendectomy: No Hx Cholecystectomy: No Hx Genitourinary Surgery: No Hx Section: No Hx Orthopedic Surgery: No Anesthesia Reaction: No - PPD History Previous Implant?: Yes Documented Results: Negative w/proof Implanted On Prior R Admission?: Yes Date: 06/10/18 Results: 0 mm PPD to be Administered?: Yes - Smoking Cessation Smoking history: Current every day smoker Have you smoked in the past 12 months: Yes Aproximately how many cigarettes per day: 5 Hx Chewing Tobacco Use: No Initiated information on smoking cessation: Yes 'Breaking Loose' booklet given: 06/22/19 - Substance & Tx. History Hx Alcohol Use: Yes Hx Substance Use: Yes Substance Use Type: Alcohol, Cocaine, Marijuana - Substances abused Marijuana/Hashish Substance route: Smoking Frequency: 1-2 times per week Amount used: a dime bag Age of first use: 9 Date of last use: 06/22/19 Alcohol Substance route: Oral Frequency: 3-6 times per week Amount used: 1 pint Age of first use: 15 Date of last use: 06/22/19 Crack Substance route: Smoking Frequency: 1-2 times per week Amount used: 20 dollars Age of first use: 18 Date of last use: 06/21/19 Admission Physical Exam [facility] - Vital Signs Vital Signs: Vital Signs - 24 hr 06/22/19 17:11 Temperature 97.6 F Pulse Rate 56 L Respiratory 16 Rate Blood Pressure 115/72 - Physical General Appearance: Yes: Disheveled, Mild Distress, Thin, Other (circumferential , tangential speech) HEENTM: Yes: EOMI, Normal Voice, Pharynx Normal Respiratory: Yes: Chest Non-Tender, Lungs Clear, Normal Breath Sounds, No Respiratory Distress, No Accessory Muscle Use Neck: Yes: No masses,lesions,Nodules, Trachea in good position Breast: Yes: Breast Exam Deferred Cardiology: Yes: Regular Rhythm, Regular Rate, S1, S2 Abdominal: Yes: Normal Bowel Sounds, Flat, Soft, Tenderness (mild epigastric tenderness) Genitourinary: Yes: Within Normal Limits Back: Yes: Normal Inspection Musculoskeletal: Yes: full range of Motion Extremities: Yes: Non-Tender, Pedal Edema (trace edema), Other (R arm with muscle atrophy) Neurological: Yes: skill training program coordinator II-XII NML intact, Alert, Other (0/5 muscle strength on R upper extremity proximally, muscle strength on R upper extremity 3/5 distally. 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 Current Visit: No Status: Chronic (7) Nicotine dependence Current Visit: No Status: Chronic (8) Weight loss Current Visit: No Status: Chronic (9) MDD (major depressive disorder), recurrent episode Current Visit: No Status: Ruled-out Breathalyzer - Breathalyzer Breathalyzer: 0 Urine Drug Screen - Test Device Lot number: [id number] Expiration date: 02/10/21 - Control Is test valid?: Yes - Results Drug screen NEGATIVE: Yes Urine drug screen results: THC-Marijuana, ROYAL-Cocaine, BZO-Benzodiazepines Inpatient Rehab Admission - Rehab Decision to Admit Inpatient rehab admission?: Yes - Initial Determination Are CD services needed?: Yes Free of communicable disease: Yes Not in need of hospitalization: Yes - Rehab Admission Criteria Previous failed treatment: Yes Poor recovery environment: Yes Comorbidities: Yes Lacks judgement: Yes Patient is meeting Inpatient Rehab admission criteria:: Yes (low CIWA score, will need inpatient rehab for alcohol abuse)
[2019-06-22] MEDS ORDERED: IBUPROFEN 400 MG TABLET (FP) PO PRN (18:37)
[2019-06-22] MEDS ORDERED: hydrOXYzine PAMOATE 25 MG CAPSULE (FP) PO PRN (18:37)
[2019-06-22] MEDS ORDERED: guaiFENesin 200 MG/10 ML 10 ML UNIT-DOSE CUPS PO PRN (18:37)
[2019-06-22] MEDS ORDERED: MAGNESIUM HYDROX 2400MG/30ML ORAL SUSPENSION 30 ML CUP PO PRN (18:37)
[2019-06-22] MEDS ORDERED: P-EPHED 60MG/TRIPROLIDI 2.5MG TABLET PO PRN (18:37)
[2019-06-22] MEDS ORDERED: MENTHOL/PHENOL 1 EACH UD MM PRN (18:37)
[2019-06-22] MEDS ORDERED: LOPERAMIDE HCL 2 MG CAPSULE PO PRN (18:37)
[2019-06-22] MEDS ORDERED: MAG HYDROX/AL HYDROX/SIMETH 30 ML UNIT-DOSE CUP PO PRN (18:37)
[2019-06-22] MEDS ORDERED: MAGNESIUM CITRATE 300 ML BOTTLE PO PRN (18:37)
[2019-06-22] MEDS ORDERED: AMMONIUM LACTATE 12% LOTION 225 GM BOTTLE TP PRN (18:39)
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
[2019-06-22] MEDS: THIAMINE HCL 100 MG TABLET (FP) PO SCH (21:10)
[2019-06-22] MEDS: MELATONIN 5 MG TABLETS PO PRN (21:10)
[2019-06-23] MEDS: RANITIDINE HCL 150 MG TABLET (FP) PO SCH (10:11)
[2019-06-23] MEDS: PRENATAL VITAMINS W/ FOLIC ACID TABLET (FP) PO SCH (10:11)
--- NOTE | 2019-06-23 10:41 | CONSULT ---
[facility] Psychiatric Consult - Data Date of interview: 06/23/19 Admission source: [facility] Identifying data: Patient is a 53 year old single male, father of one, unemployed, domiciled, and is supported by [facility]. This is one of multiple admissions for patient. Patient admitted to for alcohol, marijuana, and cocaine dependence. Substance Abuse History: Smoking Cessation. Smoking history: Current every day smoker. Have you smoked in the past 12 months: Yes. Aproximately how many cigarettes per day: 5. Hx Chewing Tobacco Use: No. Initiated information on smoking cessation: Yes. 'Breaking Loose' booklet given: 06/22/19. - Substance & Tx. History. Hx Alcohol Use: Yes. Hx Substance Use: Yes. Substance Use Type : Alcohol, Cocaine, Marijuana. - Substances abused. Marijuana/Hashish. Substance route: Smoking. Frequency: 1-2 times per week. Amount used: a dime bag. Age of first use: 9. Date of last use: 06/22/19. Alcohol. Substance route: Oral. Frequency: 3-6 times per week. Amount used: 1 pint. Age of first use: 15. Date of last use: 06/22/19. Crack. Substance route: Smoking. Frequency: 1-2 times per week. Amount used: 20 dollars. Age of first use: 18. 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 Mr. Quintero reports a history of two psychiatric hospitalizations, most recently at [facility] in 2018 after reporting suicidal ideation. Patient stated to advertising writer that he was not suicidal at the time but stated those words in order to be admitted. As per external records patient's most recent prescription was for zoloft 50mg + Seroquel 50mg on 01/19/19 (30 day prescription). Mr. Quintero reported that he is currently receiving psychiatric care at [facility] and was prescribed librum??. He denies receiving scripts for zoloft and seroquel. Patient reports not taking psychotropic medications for months due to using illicit drugs daily. At present patients reports stable mood but is experiencing difficulty sleeping. Physical/Sexual Abuse/Trauma History: denies. Mental Status Exam - Mental Status Exam Alert and Oriented to: Time, Place, Person Cognitive Function: Good Patient Appearance: Well Groomed Mood: Euthymic Affect: Mood Congruent Patient Behavior: Cooperative Speech Pattern: Appropriate Voice Loudness: Normal Thought Process: Goal Oriented Thought Disorder: Not Present Hallucinations: Denies Suicidal Ideation: Denies Homicidal Ideation: Denies Insight/Judgement: Poor Sleep: Poorly Appetite: Fair Muscle strength/Tone: Normal Gait/Station: Normal Psychiatric Findings - Problem List ([place] 1, 2,3) (1) Alcohol dependence Current Visit: Yes Status: Acute (2) Cannabis dependence Current Visit: Yes Status: Acute (3) Substance-induced sleep disorder Current Visit: Yes Status: Acute (4) Cocaine dependence Current Visit: Yes Status: Chronic (5) Mood disorder Current Visit: Yes Status: Chronic - Initial Treatment Plan Initial Treatment Plan: Psychoeducation provided. Rehab in progress. Will order Seroquel 50mg HS. Benefits and side effects discussed. Verbal consent given.
[2019-06-23 12:48] LABS: HEMATOCRIT 43.5 % (35.4-49); HEMOGLOBIN 14.2 GM/dL (11.7-16.9); MCH 30.4 pg (25.7-33.7); MCHC 32.6 g/dl (32.0-35.9); MEAN CELL VOLUME 93.3 fl (80-96); PLATELET COUNT 201 K/MM3 (134-434); RBC 4.67 M/mm3 (4.00-5.60); RDW 13.8 % (11.9-15.9); WHITE BLOOD COUNT 5.1 K/mm3 (4.0-10.0)
[2019-06-23 12:53] LABS: URINE APPEARANCE CLEAR; URINE BILIRUBIN NEGATIVE (NEGATIVE); URINE COLOR YELLOW; URINE GLUCOSE (UA) NEGATIVE (NEGATIVE); URINE KETONE NEGATIVE (NEGATIVE); URINE LEUK ESTERASE NEGATIVE (NEGATIVE); URINE NITRITE NEGATIVE (NEGATIVE); URINE PROTEIN NEGATIVE (NEGATIVE); URINE UROBILINOGEN 0.2 mg/dL (0.2-1.0)
[2019-06-23 12:55] LABS: ALBUMIN 3.5 g/dl (3.4-5.0); BILIRUBIN,TOTAL 0.2 mg/dL (0.2-1); BLOOD UREA NITROGEN 8.6 mg/dL (7-18); CALCIUM 8.3 mg/dL (8.5-10.1); CREATININE 0.8 mg/dL (0.55-1.3); POTASSIUM 3.8 mmol/L (3.5-5.1); TOT PROT 6.6 g/dl (6.4-8.2)
[2019-06-23] MEDS: QUEtiapine FUMARATE 50 MG TABLET PO SCH (21:17)
[2019-06-23] MEDS: THIAMINE HCL 100 MG TABLET (FP) PO SCH (21:17)
[2019-06-24] MEDS: PRENATAL VITAMINS W/ FOLIC ACID TABLET (FP) PO SCH (10:38)
[2019-06-24] MEDS: RANITIDINE HCL 150 MG TABLET (FP) PO SCH (10:38)
[2019-06-24] MEDS: THIAMINE HCL 100 MG TABLET (FP) PO SCH (21:39)
[2019-06-24] MEDS: QUEtiapine FUMARATE 50 MG TABLET PO SCH (21:40)
[2019-06-25] MEDS: PRENATAL VITAMINS W/ FOLIC ACID TABLET (FP) PO SCH (09:53)
[2019-06-25] MEDS: RANITIDINE HCL 150 MG TABLET (FP) PO SCH (09:54)
[2019-06-25] MEDS: THIAMINE HCL 100 MG TABLET (FP) PO SCH (21:25)
[2019-06-25] MEDS: QUEtiapine FUMARATE 50 MG TABLET PO SCH (21:25)
[2019-06-26] MEDS: PRENATAL VITAMINS W/ FOLIC ACID TABLET (FP) PO SCH (09:57)
[2019-06-26] MEDS: RANITIDINE HCL 150 MG TABLET (FP) PO SCH (09:57)
[2019-06-26] MEDS: THIAMINE HCL 100 MG TABLET (FP) PO SCH (21:12)
[2019-06-26] MEDS: QUEtiapine FUMARATE 50 MG TABLET PO SCH (21:12)
[2019-06-27] MEDS: RANITIDINE HCL 150 MG TABLET (FP) PO SCH (10:10)
[2019-06-27] MEDS: PRENATAL VITAMINS W/ FOLIC ACID TABLET (FP) PO SCH (10:10)
[2019-06-27] MEDS: MELATONIN 5 MG TABLETS PO PRN (21:10)
[2019-06-27] MEDS: QUEtiapine FUMARATE 50 MG TABLET PO SCH (21:10)
[2019-06-27] MEDS: THIAMINE HCL 100 MG TABLET (FP) PO SCH (21:10)
[2019-06-28] MEDS: RANITIDINE HCL 150 MG TABLET (FP) PO SCH (10:24)
[2019-06-28] MEDS: PRENATAL VITAMINS W/ FOLIC ACID TABLET (FP) PO SCH (10:24)
[2019-06-28] MEDS: THIAMINE HCL 100 MG TABLET (FP) PO SCH (21:16)
[2019-06-28] MEDS: MELATONIN 5 MG TABLETS PO PRN (21:16)
[2019-06-28] MEDS: QUEtiapine FUMARATE 50 MG TABLET PO SCH (21:16)
[2019-06-29] MEDS: RANITIDINE HCL 150 MG TABLET (FP) PO SCH (10:08)
[2019-06-29] MEDS: PRENATAL VITAMINS W/ FOLIC ACID TABLET (FP) PO SCH (10:08)
[2019-06-29] MEDS: MELATONIN 5 MG TABLETS PO PRN (21:11)
[2019-06-29] MEDS: QUEtiapine FUMARATE 50 MG TABLET PO SCH (21:11)
[2019-06-29] MEDS: THIAMINE HCL 100 MG TABLET (FP) PO SCH (21:11)
[2019-06-30] MEDS: FAMOTIDINE 20 MG TABLET PO SCH (10:09)
[2019-06-30] MEDS: PRENATAL VITAMINS W/ FOLIC ACID TABLET (FP) PO SCH (10:09)
--- NOTE | 2019-06-30 13:27 | PN ---
[facility] Progress Note Note: Pt c/o itchy, dry feet. States "i think i might have fungus feet". Vital Signs - 24 hr 06/30/19 06/30/19 06/30/19 00:30 03:30 06:51 Temperature 98.0 F Pulse Rate 60 Respiratory 16 18 16 Rate Blood Pressure 119/71 Laboratory Tests 06/23/19 06/23/19 06/23/19 08:03 08:03 08:40 WBC 5.1 RBC 4.67 Hgb 14.2 Hct 43.5 MCV 93.3 MCH 30.4 MCHC 32.6 RDW 13.8 Plt Count 201 D MPV 9.0 Sodium 143 Potassium 3.8 Chloride 109 H Carbon Dioxide 27 Anion Gap 6 L BUN 8.6 Creatinine 0.8 Est GFR (CKD-EPI)AfAm 118.20 Est GFR (CKD-EPI)NonAf 101.99 Random Glucose 93 Calcium 8.3 L Total Bilirubin 0.2 AST 19 ALT 32 Alkaline Phosphatase 104 Total Protein 6.6 Albumin 3.5 Urine Color Yellow Urine Appearance Clear Urine pH 5.0 Ur Specific [place] 1.026 Urine Protein Negative Urine Glucose (UA) Negative Urine Ketones Negative Urine Blood Negative Urine Nitrite Negative Urine Bilirubin Negative Urine Urobilinogen 0.2 Ur Leukocyte Esterase Negative Alert o x 3 nad oob ambulating with steady gait Feet:dry,scaly on the soles,dry and ashy skin' A/P Tinea Pedis Tinactin Cream as directed, apply to affected areas. Continue Lac Hydrin Lotion skin moisturizer
[2019-06-30] MEDS: TOLNAFTATE 1% CREAM 15 GM TUBE TP SCH ×2 (14:50→21:27)
[2019-06-30] MEDS: THIAMINE HCL 100 MG TABLET (FP) PO SCH (21:26)
[2019-06-30] MEDS: QUEtiapine FUMARATE 50 MG TABLET PO SCH (21:26)
[2019-06-30] MEDS: MELATONIN 5 MG TABLETS PO PRN (21:27)
[2019-07-01] MEDS: PRENATAL VITAMINS W/ FOLIC ACID TABLET (FP) PO SCH (09:44)
[2019-07-01] MEDS: TOLNAFTATE 1% CREAM 15 GM TUBE TP SCH ×2 (09:44→21:13)
[2019-07-01] MEDS: FAMOTIDINE 20 MG TABLET PO SCH (09:44)
[2019-07-01] MEDS: THIAMINE HCL 100 MG TABLET (FP) PO SCH (21:13)
[2019-07-01] MEDS: QUEtiapine FUMARATE 50 MG TABLET PO SCH (21:13)
[2019-07-01] MEDS: MELATONIN 5 MG TABLETS PO PRN (21:14)
[2019-07-02] MEDS: PRENATAL VITAMINS W/ FOLIC ACID TABLET (FP) PO SCH (09:46)
[2019-07-02] MEDS: FAMOTIDINE 20 MG TABLET PO SCH (09:46)
[2019-07-02] MEDS: TOLNAFTATE 1% CREAM 15 GM TUBE TP SCH ×2 (09:47→21:11)
[2019-07-02] MEDS: QUEtiapine FUMARATE 50 MG TABLET PO SCH (21:10)
[2019-07-02] MEDS: MELATONIN 5 MG TABLETS PO PRN (21:11)
[2019-07-02] MEDS: THIAMINE HCL 100 MG TABLET (FP) PO SCH (21:11)
[2019-07-03] MEDS: PRENATAL VITAMINS W/ FOLIC ACID TABLET (FP) PO SCH (10:11)
[2019-07-03] MEDS: TOLNAFTATE 1% CREAM 15 GM TUBE TP SCH ×2 (10:12→21:28)
[2019-07-03] MEDS: FAMOTIDINE 20 MG TABLET PO SCH (12:05)
[2019-07-03] MEDS: THIAMINE HCL 100 MG TABLET (FP) PO SCH (21:28)
[2019-07-03] MEDS: MELATONIN 5 MG TABLETS PO PRN (21:28)
[2019-07-03] MEDS: QUEtiapine FUMARATE 50 MG TABLET PO SCH (21:28)
[2019-07-04] MEDS: PRENATAL VITAMINS W/ FOLIC ACID TABLET (FP) PO SCH (10:07)
[2019-07-04] MEDS: FAMOTIDINE 20 MG TABLET PO SCH (10:08)
[2019-07-04] MEDS: TOLNAFTATE 1% CREAM 15 GM TUBE TP SCH ×2 (10:08→21:34)
[2019-07-04] MEDS: MELATONIN 5 MG TABLETS PO PRN (21:34)
[2019-07-04] MEDS: QUEtiapine FUMARATE 50 MG TABLET PO SCH (21:34)
[2019-07-04] MEDS: THIAMINE HCL 100 MG TABLET (FP) PO SCH (21:34)
[2019-07-05] MEDS: PRENATAL VITAMINS W/ FOLIC ACID TABLET (FP) PO SCH (10:14)
[2019-07-05] MEDS: FAMOTIDINE 20 MG TABLET PO SCH (10:14)
[2019-07-05] MEDS: TOLNAFTATE 1% CREAM 15 GM TUBE TP SCH ×2 (10:15→21:25)
--- NOTE | 2019-07-05 13:48 | PN ---
[facility] Progress Note Note: Patient is scheduled for discharge tomorrow. Script for 30 days supply of Seroquel 50 mg/hs will be electronically transmitted to [facility] [place] [address] [address]
--- NOTE | 2019-07-05 15:00 | DS ---
[facility] Rehab Discharge Summary - [facility] Rehab Discharge Summary Admission Date: 06/22/19 Discharge Date: 07/06/19 - History Present History: Alcohol dependence, Cannabis dependence, Cocaine dependence Additional Comments: Pt is a 53 y/o male with a hx of HUA admitted to rehab and scheduled for discharge on . pt met with his counselor, Sy Cee and has been referred to CD aftercare at [facility]. Pt reports he is connected to primary care with [facility]. Pertinent Past History: GERD Hep C Hemorrhoids - Discharge Physical Exam Vital Signs: Vital Signs Temperature 97.8 F 07/05/19 07:18 Pulse Rate 65 07/05/19 07:18 Respiratory Rate 18 07/05/19 07:18 Blood Pressure 124/72 07/05/19 07:18 O2 Sat by Pulse Oximetry (%) Alert o x 3 nad oob with steady gait cardiac:s1 s2, rrr lungs:cta,juan a. abdomen;+bs,flat,nt,nd extremities/skin:no edema,full ROM,skin intact. Pertinent Admission Physical Exam Findings: Laboratory Tests 06/23/19 06/23/19 06/23/19 08:03 08:03 08:40 WBC 5.1 RBC 4.67 Hgb 14.2 Hct 43.5 MCV 93.3 MCH 30.4 MCHC 32.6 RDW 13.8 Plt Count 201 D MPV 9.0 Sodium 143 Potassium 3.8 Chloride 109 H Carbon Dioxide 27 Anion Gap 6 L BUN 8.6 Creatinine 0.8 Est GFR (CKD-EPI)AfAm 118.20 Est GFR (CKD-EPI)NonAf 101.99 Random Glucose 93 Calcium 8.3 L Total Bilirubin 0.2 AST 19 ALT 32 Alkaline Phosphatase 104 Total Protein 6.6 Albumin 3.5 Urine Color Yellow Urine Appearance Clear Urine pH 5.0 Ur Specific [place] 1.026 Urine Protein Negative Urine Glucose (UA) Negative Urine Ketones Negative Urine Blood Negative Urine Nitrite Negative Urine Bilirubin Negative Urine Urobilinogen 0.2 Ur Leukocyte Esterase Negative Unremarkable on admission - Treatment Discharge Condition: Discharge condition good Hospital Course: Rehabilitated safely and responded well - Medication Discharge Medications: Ambulatory Orders Famotidine [Pepcid] 20 mg PO DAILY #14 tablet 07/05/19 Quetiapine Fumarate [Seroquel -] 50 mg PO HS #30 tablet 07/05/19 - Medication-Assisted Treatment (MAT) Medication-Assisted Treatment (MAT): No - Discharge Instructions Diet, activity, other medical instructions: Diet:Regular Activity: oob ad karely Other medical instructions:Follow up with [facility] CD treatment for Cd aftercare as scheduled. Follow up with primary care/Housing with [facility] on [address] [place] [address] within 1 week after discharge. - Diagnosis (1) Cocaine dependence Status: Chronic (2) Cannabis dependence, uncomplicated Status: Chronic (3) GERD (gastroesophageal reflux disease) Status: Chronic Qualifiers: Esophagitis presence: esophagitis presence not specified Qualified Code(s) : K21.9 - Gastro-esophageal reflux disease without esophagitis (4) Weight loss Status: Acute (5) Nicotine dependence Status: Chronic Qualifiers: Nicotine product type: cigarettes Substance use status: uncomplicated Qualified Code(s): F17.210 - Nicotine dependence, cigarettes, uncomplicated (6) Hemorrhoid Status: Chronic Qualifiers: Hemorrhoid type: unspecified Qualified Code(s): K64.9 - Unspecified hemorrhoids (7) Hepatitis C Status: Chronic Qualifiers: Viral hepatitis chronicity: unspecified (8) Alcohol dependence Status: Chronic Qualifiers: Substance use status: uncomplicated Qualified Code(s): F10.20 - Alcohol dependence, uncomplicated - Follow-up Referral Minutes to complete discharge: 20 - AMA Did Patient Leave Against Medical Advice: No Additional Comments: Courtesy Rx for Pepcid electronically sent to [place] pharmacy on [address] [place] [address] for patient to mixing picker tender after discharge.
[2019-07-05] MEDS: QUEtiapine FUMARATE 50 MG TABLET PO SCH (21:25)
[2019-07-05] MEDS: THIAMINE HCL 100 MG TABLET (FP) PO SCH (21:25)
[2019-07-06 07:08] VITALS: BP 109/72; PULSE 63; TEMP 98
[2019-07-06] MEDS: PRENATAL VITAMINS W/ FOLIC ACID TABLET (FP) PO SCH (09:19)
[2019-07-06] MEDS: TOLNAFTATE 1% CREAM 15 GM TUBE TP SCH (09:20)
[2019-07-06] MEDS: FAMOTIDINE 20 MG TABLET PO SCH (09:20)
--- NOTE | 2019-07-06 11:40 | PN ---
[facility] Progress Note Note: Pt was discharged as scheduled today. Alert o x 3 oob ambulating with steady gait, nad Vital Signs - 24 hr 07/06/19 07/06/19 07/06/19 00:30 03:30 07:07 Temperature 98.0 F Pulse Rate 63 Respiratory 18 18 18 Rate Blood Pressure 109/72 Please see Rehab Discharge Summary for details
== END 2019-07-06 09:45 | disposition home or self-care (01) | DRG 772 ==
LOC: YASAS 13:00 → Y5N 19:02
PROVIDERS: ADMIT Neuromusculoskeletal Medicine & OMM; ATTEND Neuromusculoskeletal Medicine & OMM
PROC: HZ42ZZZ Group Counseling for Substance Abuse Treatment, Cognitive-Behavioral (ICD-10-PCS; principal; 2019-06-22)
DX: F10.20 Alcohol dependence, uncomplicated (principal); F14.20 Cocaine dependence, uncomplicated; F12.20 Cannabis dependence, uncomplicated; F17.210 Nicotine dependence, cigarettes, uncomplicated; F39 Unspecified mood [affective] disorder; F19.24 Other psychoactive substance dependence with psychoactive substance-induced mood disorder; K21.9 Gastro-esophageal reflux disease without esophagitis; R63.4 Abnormal weight loss; K64.9 Unspecified hemorrhoids; B18.2 Chronic viral hepatitis C; B35.3 Tinea pedis; G83.21 Monoplegia of upper limb affecting right dominant side; Z88.6 Allergy status to analgesic agent; Z86.69 Personal history of other diseases of the nervous system and sense organs
CPT/HCPCS: 36415; 80053; 81003; 85027

== ENCOUNTER 2019-11-30 10:06 | Inpatient (IN) | payer OTHER ==
--- NOTE | 2019-11-30 10:25 | [facility].RME ---
Substance Use & Tx History - Substance Use History Alcohol Substance amount: 2 beers + 2 nips daily of vodka Frequency of use: Daily Substance route: Oral Date of Last Use: 11/29/19 (11pm) Cannabis Substance amount: 2 joints Frequency of use: Daily Substance route: Smoking Date of Last Use: 11/29/19 Cocaine (Crack) Substance amount: $20 Frequency of use: Less than 3 times per week Substance route: Smoking Date of Last Use: 11/29/19 Physical/Psych/Mental Status - Behavior General Behavior: Increased activity (restlessness, agitation) Eye Contact: Normal - Cooperativeness Cooperativeness: Cooperative - Thinking Thought Processes: Tight, Logical, Goal Directed - Physical Health Problems Is patient presently having any pain?: No Does patient presently have any injuries (include location): No Does patient currently have a fever: No Is patient : No CIWA Nausea/Vomitin-No Nausea/No Vomiting Muscle Tremors: 1-None Visible, but [place] Anxiety: 4-Mod. Anxious/Guarded Agitation: 4-Moderately Restless Paroxysmal Sweats: 1-Minimal Palms Moist Orientation: 0-Oriented Tacttile Disturbances: 0-None Auditory Disturbances: 0-None Visual Disturbances: 0-None Headache: 1-Very Mild CIWA-Ar Total Score: 11
[2019-11-30 10:58] VITALS: BMI 21.2
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
[2019-11-30] MEDS ORDERED: IBUPROFEN 400 MG TABLET (FP) PO PRN (11:26)
[2019-11-30] MEDS ORDERED: MENTHOL/PHENOL 1 EACH UD MM PRN (11:26)
[2019-11-30] MEDS ORDERED: BISMUTH SUBSALICYLATE 262 MG/15 ML BTL PO PRN (11:26)
[2019-11-30] MEDS ORDERED: ONDANSETRON *ODT* 4 MG TABLET SL ONE (11:26)
[2019-11-30] MEDS ORDERED: METHOCARBAMOL 500 MG TABLET PO PRN (11:26)
[2019-11-30] MEDS ORDERED: chlordiazePOXIDE HCL 25 MG CAPSULE PO PRN (11:26)
[2019-11-30] MEDS ORDERED: MAGNESIUM HYDROX 2400MG/30ML ORAL SUSPENSION 30 ML CUP PO PRN (11:26)
[2019-11-30] MEDS ORDERED: ACETAMINOPHEN 325 MG TABLET (FP) PO PRN (11:26)
[2019-11-30] MEDS ORDERED: MAG HYDROX/AL HYDROX/SIMETH 30 ML UNIT-DOSE CUP PO PRN (11:26)
[2019-11-30] MEDS ORDERED: MAGNESIUM CITRATE 300 ML BOTTLE PO PRN (11:26)
[2019-11-30] MEDS ORDERED: NICOTINE POLACRILEX 2 MG GUM BUC PRN (11:26)
[2019-11-30] MEDS: NICOTINE 7 MG/24 HOURS TOPICAL PATCH TD SCH (12:50)
[2019-11-30] MEDS: hydrOXYzine PAMOATE 25 MG CAPSULE (FP) PO SCH ×3 (13:19→22:07)
--- NOTE | 2019-11-30 14:04 | PN ---
[facility] Progress Note Note: patient is allergic to tylenal discontinue tylenal
[2019-11-30 15:14] LABS: HEMATOCRIT 41.4 % (35.4-49); HEMOGLOBIN 13.7 GM/dL (11.7-16.9); MCH 30.2 pg (25.7-33.7); MCHC 33.1 g/dl (32.0-35.9); MEAN CELL VOLUME 91.4 fl (80-96); MEAN PLT VOLUME 8.3 fl (7.5-11.1); PLATELET COUNT 247 K/MM3 (134-434); RBC 4.53 M/mm3 (4.00-5.60); RDW 13.9 % (11.9-15.9); WHITE BLOOD COUNT 5.6 K/mm3 (4.0-10.0)
[2019-11-30 15:29] LABS: ALBUMIN 3.6 g/dl (3.4-5.0); BILIRUBIN,TOTAL 0.5 mg/dL (0.2-1); BLOOD UREA NITROGEN 20.7 mg/dL (7-18); CALCIUM 8.4 mg/dL (8.5-10.1); CREATININE 0.9 mg/dL (0.55-1.3); POTASSIUM 3.7 mmol/L (3.5-5.1); TOT PROT 7.2 g/dl (6.4-8.2)
[2019-11-30] MEDS: chlordiazePOXIDE HCL 25 MG CAPSULE PO SCH ×2 (18:10→22:07)
[2019-11-30] MEDS: THIAMINE HCL 100 MG TABLET (FP) PO SCH (22:07)
[2019-11-30] MEDS: MELATONIN 5 MG TABLETS PO SCH (22:07)
[2019-12-01] MEDS: hydrOXYzine PAMOATE 25 MG CAPSULE (FP) PO SCH ×5 (06:03→21:37)
[2019-12-01] MEDS: chlordiazePOXIDE HCL 25 MG CAPSULE PO SCH ×4 (06:03→22:33)
--- NOTE | 2019-12-01 09:35 | CONSULT ---
[facility] Psychiatric Consult - Data Date of interview: 12/01/19 Admission source: [facility] Identifying data: Patient is a 54 year old single male, father of one, unemployed, domiciled, and is supported by [facility]. This is one of multiple admissions for patient. Patient admitted to for alcohol, cannabis, and cocaine dependence. Substance Abuse History: Smoking Cessation. Smoking history: Current every day smoker. Have you smoked in the past 12 months: Yes. Aproximately how many cigarettes per day: 7. Hx Chewing Tobacco Use: No. Initiated information on smoking cessation: Yes. 'Breaking Loose' booklet given: 11/30/19. - Substances abused. Alcohol. Substance route: Oral. Frequency: Daily. Amount used: 2 beers/1/2 pint vodka. Age of first use: 14. Date of last use: 11/29/19. Crack. Substance route: Smoking. Frequency: Daily. Amount used: 1 gram. Age of first use: 17. Date of last use: 11/29/19. Marijuana/Hashish. Substance route: Smoking. Frequency: Daily. Amount used: 2 joints. Age of first use: 9. 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 Mr. Quintero reports history of multiple psychiatric hospitalizations most recently last year for depression. Patient with a history of psychiatric care at the [facility] in which he was prescribed zoloft 50mg + Seroquel 50mg. Patient is currently not receiving outpatient care. Mr. Quintero denies history of suicide attempt. At present patient reports difficulty sleeping. Physical/Sexual Abuse/Trauma History: denies. 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 ) Voice Loudness: Moderately Soft/Quiet Thought Process: Goal Oriented Thought Disorder: Not Present Hallucinations: Denies Suicidal Ideation: Denies Homicidal Ideation: Denies Insight/Judgement: Poor Sleep: Poorly Appetite: Fair Muscle strength/Tone: Normal Gait/Station: Normal Psychiatric Findings - Problem List ([place] 1, 2,3) (1) Alcohol dependence with uncomplicated withdrawal Current Visit: Yes Status: Acute (2) Cannabis dependence, uncomplicated Current Visit: Yes Status: Acute (3) Cocaine dependence Current Visit: Yes Status: Acute (4) Substance induced mood disorder Current Visit: Yes Status: Acute (5) Substance-induced sleep disorder Current Visit: Yes Status: Acute - Initial Treatment Plan Initial Treatment Plan: Psychoeducation provided. Detoxification in progress. Will order Seroquel 50mg HS. Benefits and side effects discussed. Verbal consent given.
[2019-12-01] MEDS: PRENATAL VITAMINS W/ FOLIC ACID TABLET (FP) PO SCH (10:35)
[2019-12-01] MEDS: NICOTINE 7 MG/24 HOURS TOPICAL PATCH TD SCH (10:36)
[2019-12-01] MEDS: FAMOTIDINE 20 MG TABLET PO SCH (10:36)
[2019-12-01] MEDS ORDERED: VITAMINS A AND D TOPICAL OINTMENT 60 GM TUBE TP PRN (12:33)
--- NOTE | 2019-12-01 12:33 | PN ---
[facility] CIWA - CIWA Score Nausea/Vomitin-Mild Nausea/No Vomiting Muscle Tremors: 1-None Visible, but [place] Anxiety: 1-Mildly Anxious Agitation: 1-Slight > Activity Paroxysmal Sweats: No Perspiration Orientation: 0-Oriented Tacttile Disturbances: 0-None Auditory Disturbances: 0-None Visual Disturbances: 1-Very Mild Sensitivity Headache: 0-None Present CIWA-Ar Total Score: 5 S Progress Note (SOAP) Subjective: Asking for foot cream, dry and cracking Objective: 12/01/19 12:30 Laboratory Tests 11/30/19 11/30/19 11/30/19 11:25 11:25 11:25 WBC 5.6 RBC 4.53 Hgb 13.7 Hct 41.4 MCV 91.4 MCH 30.2 MCHC 33.1 RDW 13.9 Plt Count 247 D MPV 8.3 Sodium 142 Potassium 3.7 Chloride 107 Carbon Dioxide 29 Anion Gap 6 L BUN 20.7 H Creatinine 0.9 Est GFR (CKD-EPI)AfAm 111.83 Est GFR (CKD-EPI)NonAf 96.49 Random Glucose 85 Calcium 8.4 L Total Bilirubin 0.5 AST 33 ALT 30 Alkaline Phosphatase 99 Total Protein 7.2 Albumin 3.6 RPR Titer Nonreactive Vital Signs - 24 hr 11/30/19 11/30/19 11/30/19 12:43 17:10 20:42 Temperature 96.8 F L 97.6 F 98.2 F Pulse Rate 50 L 57 L 62 Respiratory 18 16 16 Rate Blood Pressure 110/71 107/66 111/65 O2 Sat by Pulse 99 Oximetry (%) 11/30/19 12/01/19 12/01/19 21:31 00:30 03:30 Temperature Pulse Rate Respiratory 18 18 Rate Blood Pressure O2 Sat by Pulse 100 Oximetry (%) 12/01/19 12/01/19 08:02 08:50 Temperature 98.6 F 97.5 F L Pulse Rate 63 67 Respiratory 18 18 Rate Blood Pressure 107/68 120/72 O2 Sat by Pulse Oximetry (%) PE gnl: WDWN Mental status: awake, alert, nl language Motor: moves well Gait: steady Extremity: feet are dry with small cracks, no redness, no open wounds Assessment: 12/01/19 12:32 1. Alcohol use disorder 2. Dry skin Plan: 1. Librium detox protocol 2. Add A&D cream for feet
[2019-12-01] MEDS: QUEtiapine FUMARATE 50 MG TABLET PO SCH (21:37)
[2019-12-01] MEDS: THIAMINE HCL 100 MG TABLET (FP) PO SCH (21:37)
[2019-12-01] MEDS: MELATONIN 5 MG TABLETS PO SCH (21:39)
[2019-12-02] MEDS: hydrOXYzine PAMOATE 25 MG CAPSULE (FP) PO SCH ×5 (05:54→22:35)
[2019-12-02] MEDS: chlordiazePOXIDE HCL 25 MG CAPSULE PO SCH ×4 (05:54→22:35)
--- NOTE | 2019-12-02 10:22 | PN ---
[facility] CIWA - CIWA Score Nausea/Vomitin-No Nausea/No Vomiting Muscle Tremors: None Anxiety: 3 Agitation: 0-Normal Activity Paroxysmal Sweats: 3 Orientation: 0-Oriented Tacttile Disturbances: 0-None Auditory Disturbances: 0-None Visual Disturbances: 0-None Headache: 1-Very Mild CIWA-Ar Total Score: 7 S Progress Note (SOAP) Subjective: c/o sweats, headache, and anxiety. Objective: 12/02/19 10:21 Vital Signs 12/02/19 12/02/19 06:23 08:57 Temperature 97.5 F L 96.7 F L Pulse Rate 53 L 77 Respiratory 18 18 Rate Blood Pressure 130/73 115/75 O2 Sat by Pulse 98 Oximetry (%) Laboratory Last Values WBC 5.6 K/mm3 (4.0-10.0) 11/30/19 11:25 RBC 4.53 M/mm3 (4.00-5.60) 11/30/19 11:25 Hgb 13.7 GM/dL (11.7-16.9) 11/30/19 11:25 Hct 41.4 % (35.4-49) 11/30/19 11:25 MCV 91.4 fl (80-96) 11/30/19 11:25 MCH 30.2 pg (25.7-33.7) 11/30/19 11:25 MCHC 33.1 g/dl (32.0-35.9) 11/30/19 11:25 RDW 13.9 % (11.9-15.9) 11/30/19 11:25 Plt Count 247 K/MM3 (134-434) D 11/30/19 11:25 MPV 8.3 fl (7.5-11.1) 11/30/19 11:25 Sodium 142 mmol/L (136-145) 11/30/19 11:25 Potassium 3.7 mmol/L (3.5-5.1) 11/30/19 11:25 Chloride 107 mmol/L (98-107) 11/30/19 11:25 Carbon Dioxide 29 mmol/L (21-32) 11/30/19 11:25 Anion Gap 6 MMOL/L (8-16) L 11/30/19 11:25 BUN 20.7 mg/dL (7-18) H 11/30/19 11:25 Creatinine 0.9 mg/dL (0.55-1.3) 11/30/19 11:25 Est GFR (CKD-EPI)AfAm 111.83 11/30/19 11:25 Est GFR (CKD-EPI)NonAf 96.49 11/30/19 11:25 Random Glucose 85 mg/dL (74-106) 11/30/19 11:25 Calcium 8.4 mg/dL (8.5-10.1) L 11/30/19 11:25 Total Bilirubin 0.5 mg/dL (0.2-1) 11/30/19 11:25 AST 33 U/L (15-37) 11/30/19 11:25 ALT 30 U/L (13-61) 11/30/19 11:25 Alkaline Phosphatase 99 U/L (45-117) 11/30/19 11:25 Total Protein 7.2 g/dl (6.4-8.2) 11/30/19 11:25 Albumin 3.6 g/dl (3.4-5.0) 11/30/19 11:25 RPR Titer Nonreactive (NONREACTIVE) 11/30/19 11:25 Labs noted. Assessment: 12/02/19 10:22 AOX3, in no acute respiratory distress. Full ROM, ambulating in the unit. Withdrawal symptoms. Plan: continue detox.
[2019-12-02] MEDS: PRENATAL VITAMINS W/ FOLIC ACID TABLET (FP) PO SCH (10:36)
[2019-12-02] MEDS: NICOTINE 7 MG/24 HOURS TOPICAL PATCH TD SCH (10:37)
[2019-12-02] MEDS: FAMOTIDINE 20 MG TABLET PO SCH (10:37)
[2019-12-02] MEDS: MELATONIN 5 MG TABLETS PO SCH (22:34)
[2019-12-02] MEDS: QUEtiapine FUMARATE 50 MG TABLET PO SCH (22:34)
[2019-12-02] MEDS: THIAMINE HCL 100 MG TABLET (FP) PO SCH (22:35)
[2019-12-02 22:38] VITALS: BP 129/75; PULSE 73; TEMP 97.4
[2019-12-03] MEDS ORDERED: chlordiazePOXIDE HCL 10 MG CAPSULE PO PRN
--- NOTE | 2019-12-03 00:33 | DS ---
[facility] Detox Discharge Summary Admission Date: 11/30/19 Discharge Date: 12/03/19 - History Present History: Alcohol Dependence, Cannabis Dependence, Cocaine Dependence Additional Comments: CLIENT SIGNED OUT AMA, DESPITE EMOTIONAL SUPPORT AND ENCOURAGEMENT TO CONTINUE TXMENT. CLIENT ACCEPTS RISK FOR SEIZURE AND POSSIBLE FROM ABRUPTING TXMENT. HE IS A/O X3 NAD. DENIES SI/HI/AVH - Physical Exam Results Vital Signs: Vital Signs Temperature 97.4 F L 12/02/19 20:44 Pulse Rate 73 12/02/19 20:44 Respiratory Rate 16 12/02/19 20:44 Blood Pressure 129/75 12/02/19 20:44 O2 Sat by Pulse Oximetry (%) 99 12/02/19 20:44 Pertinent Admission Physical Exam Findings: WITHDRAWAL SX'S Laboratory Tests 11/30/19 11/30/19 11/30/19 11:25 11:25 11:25 WBC 5.6 RBC 4.53 Hgb 13.7 Hct 41.4 MCV 91.4 MCH 30.2 MCHC 33.1 RDW 13.9 Plt Count 247 D MPV 8.3 Sodium 142 Potassium 3.7 Chloride 107 Carbon Dioxide 29 Anion Gap 6 L BUN 20.7 H Creatinine 0.9 Est GFR (CKD-EPI)AfAm 111.83 Est GFR (CKD-EPI)NonAf 96.49 Random Glucose 85 Calcium 8.4 L Total Bilirubin 0.5 AST 33 ALT 30 Alkaline Phosphatase 99 Total Protein 7.2 Albumin 3.6 RPR Titer Nonreactive - Treatment Hospital Course: Discharged Condition Good Patient has Accepted a Rehab Referral to: [facility] - Medication Discharge Medications: Ambulatory Orders Famotidine [Pepcid] 20 mg PO DAILY #14 tablet 07/05/19 Quetiapine Fumarate [Seroquel -] 50 mg PO HS #30 tablet 07/05/19 - Diagnosis (1) Alcohol dependence with uncomplicated withdrawal Status: Acute (2) Cannabis dependence, uncomplicated Status: Acute (3) Cocaine dependence Status: Acute (4) Nicotine dependence Status: Chronic Qualifiers: Nicotine product type: cigarettes Substance use status: uncomplicated Qualified Code(s): F17.210 - Nicotine dependence, cigarettes, uncomplicated - AMA Did Patient Leave Against Medical Advice: Yes (DISCHARGE 20 MINUTES)
[2019-12-03] MEDS ORDERED: chlordiazePOXIDE HCL 10 MG CAPSULE PO SCH (05:00)
[2019-12-04] MEDS ORDERED: chlordiazePOXIDE HCL 10 MG CAPSULE PO SCH (05:00)
[2019-12-05] MEDS ORDERED: chlordiazePOXIDE HCL 10 MG CAPSULE PO ONE (05:00)
== END 2019-12-03 00:31 | disposition left against medical advice (07) | DRG 770 ==
LOC: YASAS 10:06 → Y3N 11:10
PROVIDERS: ADMIT Allergy & Immunology; ATTEND Allergy & Immunology
PROC: HZ2ZZZZ Detoxification Services for Substance Abuse Treatment (ICD-10-PCS; principal; 2019-11-30)
DX: F10.230 Alcohol dependence with withdrawal, uncomplicated (principal); F14.20 Cocaine dependence, uncomplicated; F12.20 Cannabis dependence, uncomplicated; F17.210 Nicotine dependence, cigarettes, uncomplicated; F19.282 Other psychoactive substance dependence with psychoactive substance-induced sleep disorder; F19.24 Other psychoactive substance dependence with psychoactive substance-induced mood disorder; F41.8 Other specified anxiety disorders; F32.9 Major depressive disorder, single episode, unspecified; G40.909 Epilepsy, unspecified, not intractable, without status epilepticus; G54.0 Brachial plexus disorders; K21.9 Gastro-esophageal reflux disease without esophagitis; B18.2 Chronic viral hepatitis C; L85.3 Xerosis cutis; Z88.6 Allergy status to analgesic agent; Z59.0 Homelessness
CPT/HCPCS: 36415; 80053; 85027; 86593

== ENCOUNTER 2021-10-17 11:45 | Inpatient (IN) | payer OTHER ==
[2021-10-17] MEDS ORDERED: MAGNESIUM HYDROX 2400MG/30ML ORAL SUSPENSION 30 ML CUP PO PRN (12:29)
[2021-10-17] MEDS ORDERED: IBUPROFEN 400 MG TABLET (FP) PO PRN (12:29)
[2021-10-17] MEDS ORDERED: MAG HYDROX/AL HYDROX/SIMETH 30 ML UNIT-DOSE CUP PO PRN (12:29)
[2021-10-17] MEDS ORDERED: NICOTINE 10 MG CARTRIDGE (INHALER) IH PRN (12:29)
[2021-10-17] MEDS ORDERED: MAGNESIUM CITRATE 300 ML BOTTLE PO PRN (12:29)
[2021-10-17] MEDS ORDERED: METHOCARBAMOL 500 MG TABLET PO PRN (12:29)
[2021-10-17] MEDS ORDERED: BISMUTH SUBSALICYLATE 524 MG/30 ML PO PRN (12:29)
[2021-10-17] MEDS ORDERED: ACETAMINOPHEN 325 MG TABLET (FP) PO PRN ×2 (12:29)
[2021-10-17] MEDS ORDERED: chlordiazePOXIDE HCL 25 MG CAPSULE PO PRN (12:29)
[2021-10-17] MEDS ORDERED: ONDANSETRON *ODT* 4 MG TABLET SL PRN (12:29)
[2021-10-17 12:50] VITALS: BMI 22.5
[2021-10-17 15:25] LABS: HEMATOCRIT 42.6 % (35.4-49); HEMOGLOBIN 14.7 GM/dL (11.7-16.9); MCH 30.6 pg (25.7-33.7); MCHC 34.4 g/dl (32.0-35.9); MEAN CELL VOLUME 88.7 fl (80-96); MEAN PLT VOLUME 7.7 fl (7.5-11.1); PLATELET COUNT 240 10^3/uL (134-434); RDW 13.5 % (11.9-15.9); WHITE BLOOD COUNT 9.2 K/mm3 (4.0-10.0)
[2021-10-17 15:37] LABS: CALCIUM 9.3 mg/dL (8.5-10.1)
[2021-10-17 15:40] LABS: CREATININE 1.1 mg/dL (0.55-1.3)
[2021-10-17 15:41] LABS: BILIRUBIN,TOTAL 0.5 mg/dL (0.2-1); TOT PROT 7.7 g/dl (6.4-8.2)
[2021-10-17] MEDS: NICOTINE 7 MG/24 HOURS TOPICAL PATCH TD SCH (17:38)
[2021-10-17] MEDS: hydrOXYzine PAMOATE 25 MG CAPSULE (FP) PO SCH ×3 (17:40→22:12)
[2021-10-17] MEDS: chlordiazePOXIDE HCL 25 MG CAPSULE PO SCH ×2 (18:04→22:12)
[2021-10-17] MEDS: PRENATAL VITAMINS W/ FOLIC ACID TABLET (FP) PO SCH (18:04)
[2021-10-17] MEDS: MELATONIN 5 MG TABLETS PO SCH (22:12)
[2021-10-17] MEDS: THIAMINE HCL 100 MG TABLET (FP) PO SCH (22:12)
[2021-10-18] MEDS: chlordiazePOXIDE HCL 25 MG CAPSULE PO SCH ×4 (05:31→22:26)
[2021-10-18] MEDS: hydrOXYzine PAMOATE 25 MG CAPSULE (FP) PO SCH ×5 (05:31→22:26)
[2021-10-18] MEDS: FAMOTIDINE 20 MG TABLET PO SCH (10:15)
[2021-10-18] MEDS: PRENATAL VITAMINS W/ FOLIC ACID TABLET (FP) PO SCH (10:15)
[2021-10-18] MEDS: NICOTINE 7 MG/24 HOURS TOPICAL PATCH TD SCH (10:35)
[2021-10-18] MEDS: MELATONIN 5 MG TABLETS PO SCH (22:26)
[2021-10-18] MEDS: THIAMINE HCL 100 MG TABLET (FP) PO SCH (22:26)
[2021-10-19] MEDS: chlordiazePOXIDE HCL 25 MG CAPSULE PO SCH ×4 (05:39→22:03)
[2021-10-19] MEDS: hydrOXYzine PAMOATE 25 MG CAPSULE (FP) PO SCH ×5 (05:39→22:03)
[2021-10-19] MEDS: FAMOTIDINE 20 MG TABLET PO SCH (10:13)
[2021-10-19] MEDS: PRENATAL VITAMINS W/ FOLIC ACID TABLET (FP) PO SCH (10:13)
[2021-10-19] MEDS: NICOTINE 7 MG/24 HOURS TOPICAL PATCH TD SCH (10:33)
[2021-10-19] MEDS: MELATONIN 5 MG TABLETS PO SCH (22:03)
[2021-10-19] MEDS: THIAMINE HCL 100 MG TABLET (FP) PO SCH (22:03)
[2021-10-19] MEDS: MENTHOL/PHENOL 1 EACH UD MM PRN (22:05)
[2021-10-20] MEDS ORDERED: chlordiazePOXIDE HCL 10 MG CAPSULE PO PRN
[2021-10-20] MEDS: chlordiazePOXIDE HCL 10 MG CAPSULE PO SCH ×4 (05:36→23:02)
[2021-10-20] MEDS: hydrOXYzine PAMOATE 25 MG CAPSULE (FP) PO SCH ×5 (05:37→23:03)
[2021-10-20] MEDS: FAMOTIDINE 20 MG TABLET PO SCH (10:14)
[2021-10-20] MEDS: PRENATAL VITAMINS W/ FOLIC ACID TABLET (FP) PO SCH (10:14)
[2021-10-20] MEDS: NICOTINE 7 MG/24 HOURS TOPICAL PATCH TD SCH (10:14)
[2021-10-20] MEDS: THIAMINE HCL 100 MG TABLET (FP) PO SCH (23:02)
[2021-10-20] MEDS: MELATONIN 5 MG TABLETS PO SCH (23:02)
[2021-10-21] MEDS: chlordiazePOXIDE HCL 10 MG CAPSULE PO SCH ×2 (06:02→17:33)
[2021-10-21] MEDS: hydrOXYzine PAMOATE 25 MG CAPSULE (FP) PO SCH ×5 (06:02→22:26)
[2021-10-21] MEDS: MENTHOL/PHENOL 1 EACH UD MM PRN (06:04)
[2021-10-21] MEDS: NICOTINE 7 MG/24 HOURS TOPICAL PATCH TD SCH (10:14)
[2021-10-21] MEDS: PRENATAL VITAMINS W/ FOLIC ACID TABLET (FP) PO SCH (10:15)
[2021-10-21] MEDS: FAMOTIDINE 20 MG TABLET PO SCH (10:15)
[2021-10-21] MEDS: MELATONIN 5 MG TABLETS PO SCH (22:26)
[2021-10-21] MEDS: THIAMINE HCL 100 MG TABLET (FP) PO SCH (22:26)
[2021-10-22] MEDS ORDERED: chlordiazePOXIDE HCL 10 MG CAPSULE PO ONE (05:00)
[2021-10-22] MEDS: hydrOXYzine PAMOATE 25 MG CAPSULE (FP) PO SCH (06:14)
[2021-10-22 09:02] VITALS: BP 150/93; PULSE 70; TEMP 96.6
== END 2021-10-22 09:40 | disposition home or self-care (01) | DRG 774 ==
LOC: YASAS 11:45 → Y3N 16:07
PROVIDERS: ADMIT Allergy & Immunology; ATTEND Allergy & Immunology
PROC: HZ2ZZZZ Detoxification Services for Substance Abuse Treatment (ICD-10-PCS; principal; 2021-10-17)
DX: F10.230 Alcohol dependence with withdrawal, uncomplicated (principal); F14.20 Cocaine dependence, uncomplicated; F12.20 Cannabis dependence, uncomplicated; F17.210 Nicotine dependence, cigarettes, uncomplicated; F19.282 Other psychoactive substance dependence with psychoactive substance-induced sleep disorder; F19.24 Other psychoactive substance dependence with psychoactive substance-induced mood disorder; F32.A Depression, unspecified; G83.10 Monoplegia of lower limb affecting unspecified side; G83.21 Monoplegia of upper limb affecting right dominant side; R63.4 Abnormal weight loss; Z68.22 Body mass index [BMI] 22.0-22.9, adult; Z91.14 Patient's other noncompliance with medication regimen; Z88.6 Allergy status to analgesic agent
CPT/HCPCS: 36415; 80053; 85027; 86780; 93005; 93010; C9803; U0003; U0005